=== PATIENT | female | born 1975 | race Caucasian/White ===

== ENCOUNTER → 2017-09-14 14:13 | Outpatient (CLI) | payer OTHER, SELFPAY ==
--- NOTE | 2017-09-14 14:16 | US_ITS ---
STUDY: THYROID ULTRASOUND REASON FOR EXAM: Female, 42 years old. Nodule. TECHNIQUE: Ultrasound evaluation of the thyroid was performed with real-time and static senior-scale imaging. COMPARISON: CT of the soft tissue neck, May 16, 2013. FINDINGS: RIGHT LOBE: The right lobe of the thyroid gland measures 3.9 x 1.3 x 1.3 cm. There is a homogeneous echotexture. There is a 3 x 3 x 2 mm hypoechoic nodule in the mid thyroid. There is minimal perinodular vascularity. LEFT LOBE: The left lobe of the thyroid gland measures 4 x 2.1 x 1.7 cm. There is a homogeneous echotexture. There is a 2.2 x 1.9 x 1.5 cm well-defined hypoechoic mass with minimal internal cystic changes in the mid left thyroid. There is perinodular vascularity. ISTHMUS: The isthmus measures 0.2 cm. The regional lymph nodes are normal. US/Thyroid IMPRESSION: 1. Small hypoechoic mass in the mid right thyroid. This is thought to correlate with the small nodule seen on the CT. This appears decreased in size. 2. Complex nodular density in the mid left thyroid not visualized on the prior CT. 3. TR 3, mildly suspicious. Follow-up US in one year recommended. Electronically Signed: Tony Alvarado DO at 17:46 EDT Tel [phone], Service support ,
== END ==
PROVIDERS: Family Provider Student in an Organized Health Care Education/Training Program; PCP Student in an Organized Health Care Education/Training Program; Visit Provider Surgery
DX: E07.9 Disorder of thyroid, unspecified (principal)
CPT/HCPCS: 76536

== ENCOUNTER → 2017-09-29 07:30 | Outpatient (CLI) | payer OTHER, SELFPAY ==
--- NOTE | 2017-09-29 07:30 | ASPS_PTH ---
PATIENT: KACY COLLADO LOC: [facility] U#:[id number] AGE/SX: 49/F ROOM: RE09/29/[address]: Dr. Irvni Rocha MD : 1975 BED: DIS: SPEC #: [id number] RECD: 10/01/17 07:48 STATUS: BERTO ERASMO #: [id number] BEATRIZ: 09/29/17 07:[address]: Irvin Rocha DEPT: CYTOLOGY RECD BY: Karime Rodgers ENTERED: 10/01/17 09:18 SP TYPE: ASPIRATION OTHR DR: Dr. Denis Smith DO Tissues: Thyroid gland, NOS Procedures: Pap Stain (control) Special Stain Group II Cytology Other HEADER OPERATION: Left thyroid FNA PRE-OP DIAGNOSIS: Left thyroid nodules TISSUE SUBMITTED: Left thyroid 6 slides DIAGNOSIS CYTOLOGY Left thyroid nodule, FNA (smears): Consistent with benign follicular nodule. See cytology study and comment. SJ:nelli 10/02/17 COMMENT The findings may represent adenomatoid nodule. Correlation with clinical, radiologic findings and appropriate follow up are necessary. Please make reference to previous specimen ([id number]) left thyroid, ultrasound-guided FNA with diagnosis of consistent with benign follicular nodule. CYTOLOGY STUDY Slides are reviewed. The specimen is adequate for evaluation. The specimen consists of benign follicular cells and minimal colloid. CYTOLOGY GROSS Received are six smears labeled with the patient's name and designated per the requisition as left thyroid. Submitted for staining. 10/01/17 TC:5 CPT: 00887
== END ==
PROVIDERS: Family Provider Student in an Organized Health Care Education/Training Program; PCP Student in an Organized Health Care Education/Training Program; Visit Provider Surgery
DX: E04.1 Nontoxic single thyroid nodule (principal)
CPT/HCPCS: 88161; 88313

== ENCOUNTER → 2018-11-01 16:30 | Outpatient (CLI) | payer OTHER, SELFPAY ==
--- NOTE | 2018-11-01 16:35 | US_ITS ---
STUDY: THYROID ULTRASOUND REASON FOR EXAM: Female, 43 years old. Left thyroid nodule follow-up TECHNIQUE: Ultrasound evaluation of the thyroid was performed with real-time and static senior-scale imaging. COMPARISON: None. FINDINGS: RIGHT LOBE: The right lobe of the thyroid gland measures 4.2 x 1.4 x 1.2 cm. There is a homogeneous echotexture. 3 mm nodule in the right thyroid lobe is of doubtful significance, likely representing a small colloidal nodule. LEFT LOBE: The left lobe of the thyroid gland measures 4.2 x 2.0 x 2.0 cm. There is a homogeneous echotexture. 2.2 x 1.8 x 1.5 cm hypoechoic nodule in the left thyroid lobe with small areas of cystic transformation stable since the prior study. ISTHMUS: The isthmus measures 2 mm. The regional lymph nodes are normal. US/Thyroid IMPRESSION: 1. Stable thyroid nodules. No new or enlarging thyroid nodule. Electronically Signed: Unruly Rosas MD (Brooks) at 17:21 EDT , Service support ,
== END ==
PROVIDERS: Family Provider Student in an Organized Health Care Education/Training Program; PCP Student in an Organized Health Care Education/Training Program; Referring Provider Student in an Organized Health Care Education/Training Program; Visit Provider Student in an Organized Health Care Education/Training Program
DX: E04.1 Nontoxic single thyroid nodule (principal)
CPT/HCPCS: 76536

== ENCOUNTER → 2021-01-05 09:24 | Outpatient (CLI) | payer OTHER, SELFPAY ==
[2021-01-05 12:47] LABS: Absolute Lymphocyte Count 1.88 X10^3/uL (0.83-4.51); Absolute Neutrophil Count 4.7 X10^3/uL (2.0-7.7); Basophil# 0.04 X10^3/uL; Basophil% 0.6 % (0-1); Eosinophil# 0.09 X10^3/uL; Eosinophils% 1.3 % (0-5); Hematocrit 42.9 % (37-47); Hemoglobin 14.2 g/dL (12.0-15.0); Lymphocyte # 1.88 X10^3/ul (0.83-4.51); Lymphocyte % 26.4 % (19-41); Mean Corp Hgb Conc 33.1 g/dL (32-36); Mean Corpuscular Hgb 30.2 pg (27.0-32.0); Mean Corpuscular Volume 91.3 fL (81-99); Mean Platelet Vol. 9.6 fl (6.2-12.0); Monocyte# 0.43 X10^3/uL; NRBC Flagged by Analyzer 0 % (0-5); Neutrophil # 4.65 X10^3/uL (2.7-7.7); Neutrophil % 65.4 % (47-70); Platelet Count 350 K/mm3 (150-450); RBC Distribution Width CV 13.5 % (11.6-14.6); White Blood Count 7.1 K/mm3 (4.4-11.0)
[2021-01-05 13:15] LABS: ALB/GLOB Ratio 0.9 RATIO (0.9-2.4); AST(SGOT) 30 U/L (15-37); Alanine Aminotransfer ALT/SGPT 22 U/L (13-56); Albumin, Serum 3.6 g/dL (3.2-5.0); Alkaline Phosphatase 48 U/L (45-117); Anion Gap 4 (5-15); BUN 9 mg/dL (7-18); BUN/Creat Ratio 10.8 RATIO (10-20); Calcium,Total 9.1 mg/dL (8.5-10.1); Chloride 106 mmol/L (98-107); Cholesterol 173 mg/dL (200); Creatinine, Serum 0.83 mg/dL (0.55-1.02); EST Glomerular Filtration Rate 79 mL/min (>60); Est Glom Filt Rate - Afr Amer 96 mL/min (>60); Free T3 2.9 pg/mL (2.18-3.98); Glucose 89 mg/dL (74-106); High Density Lipoprotein 49 mg/dL; Potassium 4.1 mmol/L (3.5-5.1); Protein, Total 7.6 g/dL (6.4-8.2); Sodium Level 136 mmol/L (136-145); T4 Free Direct 0.96 ng/dL (0.76-1.46); Thyroid Stim Hormone (TSH) 0.88 uIU/mL (0.358-3.74); Triglycerides 61 mg/dL; Very Low Density Lipoprotein 12 mg/dL (5-40)
[2021-01-06 13:43] LABS: Thyroid Peroxidase AB < 8 IU/mL (0-34)
== END ==
PROVIDERS: PCP Student in an Organized Health Care Education/Training Program; Referring Provider Internal Medicine Endocrinology, Diabetes & Metabolism; Visit Provider Internal Medicine Endocrinology, Diabetes & Metabolism
DX: E04.1 Nontoxic single thyroid nodule (principal); R53.81 Other malaise; R53.83 Other fatigue; Z82.49 Family history of ischemic heart disease and other diseases of the circulatory system
CPT/HCPCS: 36415; 80053; 80061; 84439; 84443; 84481; 85025; 86376

== ENCOUNTER → 2021-01-12 08:46 | Outpatient (CLI) | payer OTHER, SELFPAY ==
--- NOTE | 2021-01-12 08:48 | US_ITS ---
INDICATION: follow up size of left thyroid nodule EXAMINATION: Ultrasound US Thyroid (eg thyroid, parathyroid, parotid) TECHNIQUE: Rasmussen scale and color doppler imaging was performed of the thyroid gland. COMPARISON: Thyroid ultrasound from 11/01/2018 FINDINGS: RIGHT THYROID LOBE: 4.2 x 1.6 x 1.3 cm. Homogeneous echotexture with normal vascularity. [Stable 3 mm right mid pole nodule, likely benign and of no clinical significance. LEFT THYROID LOBE: 5.0 x 2.5 x 2.0 cm. Homogeneous echotexture with normal vascularity. [Thyroid nodule as follows: Location: Left midpole. Size: 3.0 x 2.4 x 1.7 cm, previously 2.2 x 1.8 x 1.5 cm in 2019. Composition: Cystic and solid (1 point) Echogenicity: Mixed echogenicity with some hypoechoic components (2 point) Shape: Wider than tall (0 point) Margin: Smooth (0 point) Echogenic foci: None (0 point) Doppler: There is some intranodular DOPPLER flow, not previously seen. TIRADS: 3 ISTHMUS: 2 mm. No thyroid nodules are present. US/Thyroid IMPRESSION: Interval increase in size in left thyroid nodule, measuring up to 3.0 cm, previously 2.2 cm in 2019. TIRADS: 3 RECOMMENDATION: Fine needle aspiration. Electronically Signed: Bin Patrick MD at 16:31 EST Tel , Service support ,
== END ==
PROVIDERS: PCP Student in an Organized Health Care Education/Training Program; Referring Provider Internal Medicine Endocrinology, Diabetes & Metabolism; Visit Provider Internal Medicine Endocrinology, Diabetes & Metabolism
DX: E04.1 Nontoxic single thyroid nodule (principal)
CPT/HCPCS: 76536

== ENCOUNTER 2021-06-02 05:50 | Day surgery (SDC) | payer OTHER, SELFPAY ==
[2021-06-02] VITALS (9 sets, daily range): BP systolic 123–132; BP diastolic 62–76; PULSE 57–84; RESP 16–18; TEMP 36.5–36.8; O2SAT 98–100; BMI 23.9
[2021-06-02 06:35] LABS: Internal QC Validated? YES +Cl - CLEAR BKGD
[2021-06-02 06:36] LABS: Pregnancy, Urine Negative Negative
--- NOTE | 2021-06-02 06:41 | PCM.HP.BLA ---
History and Physical Date of Admission: 06/02/21 Chief Complaint: discuss thyroid surgery Emergency Medicine Physician Assistant Required: No Is patient in pain?: No Allergies No Known Allergies Allergy (Verified 05/04/21 14:32) Medications levonorgestrel 20 mcg/24 hours (7 yrs) 52 mg intrauterine device 1 insert INTRAUTERINE ONCE 01/03/21 [History Confirmed 05/04/21] Is last menstrual period known: No Post menopausal: No Patient : No PFSH Medical History Acute frontal sinusitis, unspecified Chronic midline thoracic back pain Chronic neck pain Conjunctivitis of both eyes Family history of early CAD Family history of skin cancer History of bilateral breast reduction surgery Intertrigo Left thyroid nodule Macromastia Malaise and fatigue Seasonal allergies Shoulder pain Thyroid disease Surgical History (Updated 05/04/21 @ 14:29 by Mandy Portillo) History of bilateral breast reduction surgery No history of previous surgery S/P thyroid biopsy Family History Father Cancer prostate Diabetes Heart disease Mother Cancer skin cancer Other Family history of skin cancer Social History Smoking Status: Never smoker alcohol intake: current alcohol intake frequency: a few times a month details: Social substance use type: does not use HPI HPI HPI: KACY COLLADO, is a 45 F who presents to the office today for ongoing surgical follow-up regarding a dominant left thyroid nodule. My recent office notes are as below. The patient returns now subsequent to her vacation to proceed with a left thyroid lobectomy. He has just gotten back from her vacation. She is now interested in proceeding with the planned left thyroid lobectomy. She is aware that I anticipate at least 1 to 2 weeks off of work. She has had no new symptoms. Visit Reasons: THYROID NODULE Chief Complaint: Thyroid nodule Emergency Medicine Physician Assistant Required: No Is patient in pain?: No Allergies No Known Allergies Allergy (Verified 02/02/21 15:39) Medications levonorgestrel 20 mcg/24 hours (7 yrs) 52 mg intrauterine device 1 insert INTRAUTERINE ONCE 01/03/21 [History Confirmed 02/02/21] PFSH Medical History Acute frontal sinusitis, unspecified Conjunctivitis of both eyes Family history of early CAD Left thyroid nodule Malaise and fatigue Seasonal allergies Thyroid disease Surgical History History of bilateral breast reduction surgery Family History Father Cancer prostate Diabetes Heart disease Mother Cancer skin cancer Social History Smoking Status: Never smoker alcohol intake: current alcohol intake frequency: a few times a month details: Social substance use type: does not use HPI: KACY COLLADO, is a 45 F who presents to the office today for ongoing surgical consultation regarding a left thyroid nodule. The patient is referred by Dr. Shashi Dawkins and a written copy my surgical consult recommendations will be returned to her. Laboratory of January 05 shows a TSH of 0.88 and a free T4 0.96 and free T3 of zero 2.9. Thyroid peroxidase antibody was less than 8. It is of note that June 01, 2020 she tested positive for COVID-19 She also had an updated thyroid ultrasound January 12, 2021. This demonstrates that the right lobe measures 4.2 x 1.6 x 1.3 cm with a stable 3 mm right midpole nodule. The left lobe measures 5 x 2.5 x 2 cm. In the left midpole there is a 3 x 2.4 x 1.7 cm nodule whereas previously in 2019 it measured 2.2 x 1.8 x 1.5. Current grading is TI-RADS 3. I reviewed the images and clearly this left nodule is solid cystic in nature The patient has noted some slight increase in size of this left thyroid nodule. It appears more prominent in the mirror and to palpation. 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 COMPARISON: Thyroid ultrasound from 11/01/2018 FINDINGS: RIGHT THYROID LOBE: 4.2 x 1.6 x 1.3 cm. Homogeneous echotexture with normal vascularity. [Stable 3 mm right mid pole nodule, likely benign and of no clinical significance. LEFT THYROID LOBE: 5.0 x 2.5 x 2.0 cm. Homogeneous echotexture with normal vascularity. [Thyroid nodule as follows: Location: Left midpole. Size: 3.0 x 2.4 x 1.7 cm, previously 2.2 x 1.8 x 1.5 cm in 2019. Composition: Cystic and solid (1 point) Echogenicity: Mixed echogenicity with some hypoechoic components (2 point) Shape: Wider than tall (0 point) Margin: Smooth (0 point) Echogenic foci: None (0 point) Doppler: There is some intranodular DOPPLER flow, not previously seen. TIRADS: 3 ISTHMUS: 2 mm. No thyroid nodules are present. US/Thyroid IMPRESSION: Interval increase in size in left thyroid nodule, measuring up to 3.0 cm, previously 2.2 cm in 2019. TIRADS: 3 RECOMMENDATION: Fine needle aspiration. Electronically Signed: Bin Patrick MD at 16:31 EST Tel , Service support , My previous notes of 09/17/2017 reflect the following HPI: KACY COLLADO, is a 42 F who presents to the office today for surgical follow-up regarding a dominant left thyroid nodule. 42-year-old female. A0. Her most recent child is 7 months of age. On August 31, 2016 I performed an ultrasound-guided fine-needle aspiration left thyroid nodule for her. Cytology was felt to be consistent with benign follicular nodule. Significant atypia was not seen at that time. The patient has equal syndrome symptomatic prominence of her stylohyoid bone. She currently has some discomfort when she looks down. She otherwise denies neck pain or dysphasia. She herself can easily palpate this left thyroid nodule. Her most recent thyroid ultrasound exam performed at the [facility] on September 14, 2017 demonstrates a 3 x 3 x 2 mm right mid thyroid nodule. The left thyroid itself measures 4 x 2.1 x 1.7 cm and there is a 2.9 x 1.9 x 1.5 cm nodule within it. Previously a left thyroid nodule measured 2.2 x 1.6 x 1.8 cm. Difficult to assess whether it actually had changed. Interpretation was mildly suspicious. Possible thyroid ultrasound at 1 year. 09/29/2017 I performed a repeat ultrasound fine-needle aspiration of the left thyroid nodule. Pathology again was consistent with a benign follicular nodule. Findings might represent an adenomatoid nodule. ROS General General: No weight change, appetite, fatigue, colon cancer or breast cancer HEENT HEENT: No difficulty swallowing, eye injury, eye surgery, swollen glands or hoarseness Endo Endocrine: No thyroid disease, diabetes mellitus, thyroid cancer, Hair loss, heat intolerance or cold intolerance Additional Details: thyroid enlargement, benign biopsies Skin Skin: No rash or changing moles Musc Musculoskeletal: No back problems, arthritis, rheumatoid arthritis, gout or joint pain Cardio Cardiovascular: No murmur, pacemaker, heart disease, atrial fibrillation, high blood pressure, heart attack, heart stent, palpitations, shortness of breat with exertion or chest pain Psych Psychiatric: No depression, anxiety or hearing voices Resp Respiratory: No shortness of breath, No sleep apnea, No cough, No COPD, No asthma, No emphysema and No wheezing Gastro Gastrointestinal: No abdominal pain, No nausea or vomiting, No diarrhea, No constipation, No blood in stool, No acid reflux, No hemorrhoids, No ulcers, No gallbladder problem and No black,tarry stools Mello Hematologic: No blood thinners, No blood disorders, No bleeding, No anemia and No blood clots Exam Neck Other: Neck is supple, left thyroid nodule easily palpable and moves with swallowing, nontender, carotids are 3+, no cervical adenopathy Assessment and Plan Assessment and Plan (1) Left thyroid nodule: Status: Acute Plan - Dr. Irvin Rocha MD: Progressively enlarging left thyroid nodule. I suspect this is secondary to the cystic component. 2 previous fine-needle aspirations were benign. This nodule however is quite dominant. I have explained to the patient the surgical technique of a left thyroid lobectomy. Technique benefit risk complication alternatives have been discussed. We specifically mention parathyroids and recurrent laryngeal nerve. At this time the [facility] is in a Covid crisis. Elective surgery and overnight stays are prohibited. I did explain to the patient that much of the time I can achieve a left thyroid lobectomy completely as an outpatient procedure however I cannot absolutely guarantee that. She does have a vacation planned in March. My hope and thought would be that the Covid surgery would be declining after the New Year's spike in mid to late February. We could see the patient in the office early in March and then subsequent to her vacation plan for a left thyroid lobectomy. She has had an opportunity to ask and have questions answered and she is comfortable with that approach. At this point I do not believe that a third time repeat fine-needle aspiration would change my recommendations. Copy: Dr. Denis Smith and Dr. Shashi Rocha M.D., F.A.C.S. ROS General General: No weight change, appetite, fatigue, colon cancer or breast cancer HEENT HEENT: No difficulty swallowing, eye injury, eye surgery, swollen glands or hoarseness Endo Endocrine: No thyroid disease, diabetes mellitus, thyroid cancer, Hair loss, heat intolerance or cold intolerance Additional Details: thyroid enlargement, benign biopsies Skin Skin: No rash or changing moles Musc Musculoskeletal: No back problems, arthritis, rheumatoid arthritis, gout or joint pain Cardio Cardiovascular: No murmur, pacemaker, heart disease, atrial fibrillation, high blood pressure, heart attack, heart stent, palpitations, shortness of breat with exertion or chest pain Psych Psychiatric: No depression, anxiety or hearing voices Resp Respiratory: No shortness of breath, No sleep apnea, No cough, No COPD, No asthma, No emphysema and No wheezing Gastro Gastrointestinal: No abdominal pain, No nausea or vomiting, No diarrhea, No constipation, No blood in stool, No acid reflux, No hemorrhoids, No ulcers, No gallbladder problem and No black,tarry stools Mello Hematologic: No blood thinners, No blood disorders, No bleeding, No anemia and No blood clots Exam Const General: cooperative, healthy appearing, comfortable and no acute distress Nutritional Appearance: average body habitus Orientation: alert and awake [facility] Head: normal to inspection Neck Other: Visible and easily palpable left thyroid nodule. Nontender. No cervical adenopathy. Resp Effort & Inspection: normal respiratory effort Auscultation: clear to auscultation bilaterally Cardio Rate: regular rate Rhythm: regular rhythm GI Palpation: soft Neuro General: patient alert, patient awake and patient oriented x3 Extrem General: no calf tenderness Psych Appearance: grossly normal Assessment and Plan Assessment and Plan (1) Left thyroid nodule: Status: Acute Plan - Dr. Irvin Rocha MD: I recommend to the patient left thyroid lobectomy. She is aware of the technique, benefit, risk and alternatives. She is aware that if an obvious malignancy is found at the time of surgery then I will convert to a total thyroidectomy. She is aware of potential risks including but not limited to injury to the recurrent laryngeal nerve and parathyroids. She has had an opportunity to ask and have questions answered. We will schedule procedure at her discretion. Copy: Dr. Denis Rocha M.D., F.A.C.S I have re-examined the patient. There are no clinical changes since date of exam. Irvin Rocha M.D., F.A.C.S.
--- NOTE | 2021-06-02 06:43 | EX.PCM.DISCH ---
Discharge Instructions Procedure General Surgery Diet Discharge Diet: Light diet - advance as tolerated (if you have questions about your diet instructions, please talk to you doctor.) Activity Discharge Activity: May Not Drive (for 3-5 days or while taking narcotic pain medicine.) May shower in (days): 1 Lifting Restrictions: 10 pounds Dressing / Incision Call your doctor if your incision/area has: Continuous Slow Oozing, Sudden Increased Bleeding, Increased Pain/ Swelling, Increased Redness and Foul Smelling Discharge Call your doctor if you observe: Fever of 101 or Higher Suture Line Care: Avoid Pulling/Pushing and Avoid Pinching/Bending Follow Up Care Please Follow Up With: Irvin Rocha MD When: Call [phone] to make an appointment to be seen in about 10 days. Test Results: You may shower starting tomorrow. Remove the external tape dressing. Pat the incision dry. The surgical glue will gradually wear off over approximately a week or so. Resume your routine medications Discharge Plan Admission Attending Provider: Irvin Rocha Primary Care Provider: Denis Smith Discharge Orders/Prescriptions Prescriptions: No Action Mirena 20 mcg/24 hours (7 yrs) 52 mg intrauterine device 1 insert intrauterine ONCE RF: 0
[2021-06-02] MEDS: Lactated Ringers 1,000 ML 15 ML IV ×2 (06:45→08:35)
--- NOTE | 2021-06-02 08:00 | THYROID_PTH ---
PATIENT: KACY COLLADO LOC: [facility] [place] U#:[id number] AGE/SX: 45/F ROOM: RE06/02/[address]: Dr. Irvin Rocha MD : 1975 BED: DIS: 06/02/2021 SPEC #: [id number] RECD: 06/02/21 10:04 STATUS: BERTO ZIMMERMAN #: [id number] BEATRIZ: 06/02/21 08:[address]: Irvin Rocha DEPT: SURGICAL PATHOLOGY RECD BY: Janie Medina ENTERED: 06/02/21 12:40 SP TYPE: THYROID OTHR DR: Dr. Denis Smith, DO Tissues: Thyroid gland, NOS Procedures: Surgery Specimen Level V HEADER OPERATION: Thyroid lobectomy PRE-OP DIAGNOSIS: Left thyroid nodule TISSUE SUBMITTED: Left lobe of thyroid, suture rudd isthmus MICROSCOPIC DIAGNOSIS Left lobe of thyroid, lobectomy: Atypical follicular neoplasm. See comment. SJ:nelli 06/09/2021 COMMENT The specimen is sent to [facility] for expert opinion, reviewed by Dr. Khoury and the above diagnosis is rendered. Dr. Khoury also commented that ?tumor focally invades into, but not through capsule. No definite evidence of vascular invasion noted.? The complete report is viewable in the patient's EMR. The tumor measures 3.5 cm in greatest dimension. The tumor is completely excised and <1 mm from the closest anterior margin. Please make reference to previous specimens ([id number]) left thyroid nodule, ultrasound guided FNA and ([id number]) left thyroid nodule, FNA with diagnosis of ?consistent with benign follicular nodule.? Case has been reviewed in consultation with Dr. Mason who concurs with the above diagnosis. IDC:AM MICROSCOPIC DESCRIPTION Slides are reviewed. GROSS DESCRIPTION Received in fixative is one container labeled with the patient's name and designated left lobe of thyroid, suture rudd isthmus. The specimen consists of a thyroid lobectomy specimen weighing 9.6 gm. The left lobe of thyroid measures 3.5 x 2.5 x 2 cm. The isthmus measures 0.5 x 0.5 x 0.4 cm. The specimen is inked as follows: anterior margin ? blue, posterior margin ? black, isthmic resection margin ? yellow. Serial sections of the left lobe reveal a lechuga, solid nodule with focal area of hemorrhage and cystic changes occupying 90% of the thyroid lobe measuring 3.5 x 2 x 1.5 cm. Sections of the isthmus do not reveal any mass lesion. The entire specimen is submitted in ten cassettes as follows: 1 - isthmus, 2-10 - left thyroid lobe (2 containing most superior portion and 10 containing most inferior portion). / SRUTHI:nelli 06/03/2021 TC:1 CPT: 00165
[2021-06-02] MEDS: Bupivacaine 0.5% PF 10 ML VIAL (09:23)
--- NOTE | 2021-06-02 09:25 | PCM.OPRPT ---
Problems Associated Problem List Diagnoses (1) Left thyroid nodule: Report of Operation Date of Procedure: 06/02/21 Pre-Operative Diagnosis: Left thyroid nodule, Symptomatic Post-Operative Diagnosis: Same Surgery/Procedure Performed:: Left thyroid lobectomy Description of Surgical Findings:: Timeout and informed consent was obtained. 45-year-old female was taken to the operating place upon the table underwent general endotracheal intubation anesthesia. Clean procedure no antibiotics required. Neck was gently extended prep with chlorhexidine. Transverse suprasternal incision was created sharp dissection carried down through the subcutaneous tissue platysmal flaps were raised strap muscles were incised vertically the left lobe of thyroid identified and carefully the inferior pole was dissected free identifying the inferior parathyroid protecting it harmonic scalpel was used for hemostasis. I then approached the superior pole on the left tediously with blunt dissection identified the superior pole vessels and secured them down Monnig scalpel. Also identified the superior parathyroid and that also was preserved. The gland was then rotated anteriorly and identified the course of the recurrent laryngeal nerve and great care was taken in preserving it. Attachments were transected on the posterior aspect of the thyroid releasing it from the anterior surface of the trachea. The ligament of Tatum was identified and transected. The isthmus was quite small and it was taken over to the right lobe of the thyroid and then transected with the harmonic scalpel. Inspection revealed hemostasis intact. There is been minimal blood loss throughout the procedure. The neck was irrigated. A piece of fibrillar was placed in the left neck. The strap muscles were repaired with interrupted 3-0 Vicryl simple sutures. The platysma was approximated with the same. Skin edges approximated 5-0 Vicryl subdermal stitches. The periincisional areas anesthetized with 20 cc of 0.5% Marcaine. Surgical glue was applied followed by Telfa and tape. Sponge and instrument and needle counts were reported to the surgeon to be correct. The patient was taken to the recovery room in satisfactory addition without apparent complication Specimen left lobe of thyroid with isthmus. Drains none. Blood loss minimal. Irvin Rocha M.D., F.A.C.S. Surgeon: Irvin Rocha Type of Anesthesia: General and Local
[2021-06-02] MEDS: Acetaminophen 325 MG Tablet 650 MG PO (11:12)
== END 2021-06-02 23:59 | disposition home or self-care (01) ==
LOC: SDC 05:54 → AC 05:56
PROVIDERS: Anesthesiology; PCP Student in an Organized Health Care Education/Training Program; Referring Provider Surgery; Visit Provider Surgery
PROC: (CPT 60220; principal; 2021-06-02 07:45)
DX: D34 Benign neoplasm of thyroid gland (principal); E04.1 Nontoxic single thyroid nodule
CPT/HCPCS: 60220; 81025; 88307; J7120; J2405

== ENCOUNTER → 2021-06-28 | Outpatient (CLI) | payer OTHER, SELFPAY ==
[2021-06-28 13:11] LABS: T4 Free Direct 0.75 ng/dL (0.76-1.46); Thyroid Stim Hormone (TSH) 2.41 uIU/mL (0.358-3.74)
== END | disposition home or self-care (01) ==
LOC: BIMLAB 11:00
PROVIDERS: PCP Student in an Organized Health Care Education/Training Program; Referring Provider Internal Medicine Endocrinology, Diabetes & Metabolism; Visit Provider Internal Medicine Endocrinology, Diabetes & Metabolism
DX: D49.7 Neoplasm of unspecified behavior of endocrine glands and other parts of nervous system (principal)
CPT/HCPCS: 36415; 84439; 84443

== ENCOUNTER → 2021-07-29 | Outpatient (CLI) | payer OTHER, SELFPAY ==
[2021-07-29 15:54] LABS: T4 Free Direct 0.72 ng/dL (0.76-1.46); Thyroid Stim Hormone (TSH) 3.65 uIU/mL (0.358-3.74)
== END | disposition home or self-care (01) ==
LOC: MTLAB 11:38
PROVIDERS: PCP Student in an Organized Health Care Education/Training Program; Referring Provider Internal Medicine Endocrinology, Diabetes & Metabolism; Visit Provider Internal Medicine Endocrinology, Diabetes & Metabolism
DX: D49.7 Neoplasm of unspecified behavior of endocrine glands and other parts of nervous system (principal)
CPT/HCPCS: 36415; 84439; 84443

== ENCOUNTER → 2021-09-07 | Outpatient (CLI) | payer OTHER, SELFPAY ==
[2021-09-07 15:18] LABS: Vitamin D,25 Hydroxy 38.3 ng/mL
[2021-09-07 15:30] LABS: AST(SGOT) 18 U/L (15-37); Alanine Aminotransfer ALT/SGPT 24 U/L (13-56); Albumin, Serum 3.7 g/dL (3.2-5.0); Alkaline Phosphatase 68 U/L (45-117); Anion Gap 8 (5-15); BUN 15 mg/dL (7-18); BUN/Creat Ratio 19.6 RATIO (10-20); Calcium,Total 9.4 mg/dL (8.5-10.1); Chloride 103 mmol/L (98-107); Creatinine, Serum 0.76 mg/dL (0.55-1.02); EST Glomerular Filtration Rate 87 mL/min (>60); Est Glom Filt Rate - Afr Amer 105 mL/min (>60); Globulin 3.7 g/dL (2.2-4.2); Glucose 101 mg/dL (74-106); Potassium 3.4 mmol/L (3.5-5.1); Protein, Total 7.4 g/dL (6.4-8.2); Sodium Level 140 mmol/L (136-145)
== END | disposition home or self-care (01) ==
PROVIDERS: PCP Student in an Organized Health Care Education/Training Program; Referring Provider Physician Assistant; Visit Provider Physician Assistant
DX: E89.0 Postprocedural hypothyroidism (principal); E55.9 Vitamin D deficiency, unspecified
CPT/HCPCS: 36415; 80053; 82306; 84443

== ENCOUNTER → 2021-09-13 | Outpatient (CLI) | payer OTHER, SELFPAY ==
[2021-09-13 10:45] LABS: Anion Gap 5 (5-15); BUN 14 mg/dL (7-18); BUN/Creat Ratio 16.9 RATIO (10-20); Calcium,Total 8.8 mg/dL (8.5-10.1); Chloride 107 mmol/L (98-107); Creatinine, Serum 0.83 mg/dL (0.55-1.02); EST Glomerular Filtration Rate 79 mL/min (>60); Est Glom Filt Rate - Afr Amer 96 mL/min (>60); Glucose 100 mg/dL (74-106); Potassium 3.9 mmol/L (3.5-5.1); Sodium Level 138 mmol/L (136-145)
== END | disposition home or self-care (01) ==
LOC: MTLAB 08:58
PROVIDERS: PCP Student in an Organized Health Care Education/Training Program; Referring Provider Internal Medicine Endocrinology, Diabetes & Metabolism; Visit Provider Internal Medicine Endocrinology, Diabetes & Metabolism
DX: E89.0 Postprocedural hypothyroidism (principal); M85.89 Other specified disorders of bone density and structure, multiple sites
CPT/HCPCS: 36415; 80048

== ENCOUNTER → 2021-09-24 | Outpatient (CLI) | payer OTHER, SELFPAY ==
[2021-09-26 10:27] LABS: Bacteria 0 SEEN /hpf (None Seen); Mucous, Urine 0 SEEN /hpf (<or=2+)
[2021-09-26 10:37] LABS: Color, Urine Yellow (Yellow); Glucose, Dipstick Normal (Normal); Ketone-Dipstick Negative (Negative); Leukocyte Esterase-Dipstick 25 /ul (Negative); Nitrite-Dipstick Negative (Negative); Occult Blood-Urine 25 /ul (Negative); Protein-Dipstick Negative (Negative); Specific Gravity, Urine 1.015 (1.002-1.030); Urine Bilirubin Dipstick Negative (Negative); Urine Clarity Sl. Cloudy (Clear); Urine Urobilinogen Normal (Normal)
[2021-09-26 10:43] LABS: Red Blood Cells-Urine 0-5 SEEN /hpf (0-5); Squamous Epithelial Cells - UA 0-5 SEEN /hpf (5-10); White Blood Cells 0-5 SEEN /hpf (0-5)
== END | disposition home or self-care (01) ==
LOC: LABSPEC 09-26 10:14
PROVIDERS: PCP Student in an Organized Health Care Education/Training Program; Visit Provider Physician Assistant
DX: R30.9 Painful micturition, unspecified (principal)
CPT/HCPCS: 81001; 87086

== ENCOUNTER → 2021-12-05 | Outpatient (CLI) | payer OTHER, SELFPAY ==
[2021-12-05 10:08] LABS: Bacteria 0 SEEN /hpf (None Seen); Mucous, Urine 0 SEEN /hpf (<or=2+); White Blood Cells 0 SEEN /hpf (0-5)
[2021-12-05 10:39] LABS: Color, Urine Yellow (Yellow); Glucose, Dipstick Normal (Normal); Ketone-Dipstick Negative (Negative); Leukocyte Esterase-Dipstick Negative /ul (Negative); Nitrite-Dipstick Negative (Negative); Occult Blood-Urine 25 /ul (Negative); Protein-Dipstick Negative (Negative); Urine Bilirubin Dipstick Negative (Negative); Urine Clarity Clear (Clear); Urine Urobilinogen Normal (Normal)
[2021-12-05 10:55] LABS: Red Blood Cells-Urine 0-5 SEEN /hpf (0-5); Squamous Epithelial Cells - UA 0-5 SEEN /hpf (5-10)
== END | disposition home or self-care (01) ==
LOC: LABSPEC 09:58
PROVIDERS: PCP Student in an Organized Health Care Education/Training Program; Referring Provider Nurse Practitioner Family; Visit Provider Nurse Practitioner Family
DX: R30.9 Painful micturition, unspecified (principal)
CPT/HCPCS: 81001; 87086; 87088

== ENCOUNTER → 2021-12-06 | Outpatient (CLI) | payer OTHER, SELFPAY ==
[2021-12-06 13:02] LABS: ALB/GLOB Ratio 1.1 RATIO (0.9-2.4); AST(SGOT) 25 U/L (15-37); Alanine Aminotransfer ALT/SGPT 25 U/L (13-56); Albumin, Serum 3.9 g/dL (3.2-5.0); Alkaline Phosphatase 73 U/L (45-117); Anion Gap 7 (5-15); BUN 17 mg/dL (7-18); BUN/Creat Ratio 20.1 RATIO (10-20); Calcium,Total 9.1 mg/dL (8.5-10.1); Chloride 105 mmol/L (98-107); Creatinine, Serum 0.85 mg/dL (0.55-1.02); EST Glomerular Filtration Rate 77 mL/min (>60); Est Glom Filt Rate - Afr Amer 93 mL/min (>60); Globulin 3.7 g/dL (2.2-4.2); Glucose 95 mg/dL (74-106); Potassium 3.6 mmol/L (3.5-5.1); Protein, Total 7.6 g/dL (6.4-8.2); Sodium Level 138 mmol/L (136-145); Thyroid Stim Hormone (TSH) 0.68 uIU/mL (0.358-3.74)
== END | disposition home or self-care (01) ==
LOC: MTLAB 11:03
PROVIDERS: PCP Student in an Organized Health Care Education/Training Program; Referring Provider Internal Medicine Endocrinology, Diabetes & Metabolism; Visit Provider Internal Medicine Endocrinology, Diabetes & Metabolism
DX: E89.0 Postprocedural hypothyroidism (principal)
CPT/HCPCS: 36415; 80053; 84443

== ENCOUNTER → 2022-03-01 | Outpatient (CLI) | payer OTHER, SELFPAY ==
--- NOTE | 2022-03-01 09:10 | US_ITS ---
STUDY: ULTRASOUND BREAST - LEFT REASON FOR EXAM: Female, 46 years old. Abnormal screening mammogram. TECHNIQUE: Axial and longitudinal images of the LEFT breast were performed with a high resolution ultrasound transducer. # OF IMAGES: 48 COMPARISON: Comparison is made with prior mammogram dated 03/01/2022. FINDINGS: LEFT Breast: There is a 2.2 cm x 1.5 cm x 1 cm lobulated hypoechoic mass at the 7 o''clock position of the breast of 4 cm from nipple. This also evidence of a 9 mm x 6 mm x 4 mm hypoechoic irregular nodule at the 3 o''clock position of the breast at 9 size from nipple. A similar appearing hypoechoic irregular nodule measuring 8 mm x 9 mm x 4 mm is seen at the 4 o''clock position breast at 3 cm from the nipple. US/Breast Limited Unilateral IMPRESSION: Suspicious hypoechoic nodular densities at the 7 o''clock position of the breast as well as at the 3 and 4 o''clock position of the breast as described. Biopsy is recommended. ASSESSMENT CATEGORY: BIRADS Category 4: Suspicious - Biopsy Should Be Considered. A letter regarding these results will be sent to the patient by the facility within 30 days. Electronically Signed: Gio Coyle MD at 14:11 EST ,
--- NOTE | 2022-03-01 09:10 | BI_ITS ---
MAMMOGRAPHY - BILATERAL DIAGNOSTIC REASON FOR EXAM: Female, 46 years old. Left breast lumps. Prior bilateral breast reduction surgery. PERTINENT HISTORY: Non-contributory. TECHNIQUE: Digital bilateral breast mitchell (3D mammographic acquisition) in the CC and MLO projections. 2-D mediolateral oblique (MLO) and craniocaudad (CC) views of both breasts were obtained. CAD: Full Field Digital Mammography with Computer Added Detection was performed. COMPARISON: Comparison is made with prior outside examination dated 02/16/2021. FINDINGS: Breast Composition: The breasts are heterogeneously dense, which may obscure small masses. There is a 2 cm x 1 cm well-defined slightly lobular nodule in the inferior medial aspect of the left breast. Questionable tiny nodular density in the axillary region of the left breast. Stable small benign-appearing bilateral axillary lymph nodes. No other significant abnormalities are identified. BI/DIAG MAMM W/CAD, BILAT IMPRESSION: Stable examination. Correlation with ultrasound of the left breast in the inferior medial aspect as well as the axillary regions recommended. ASSESSMENT CATEGORY: BIRADS Category 0: Incomplete. Need additional imaging evaluation. A letter regarding these results will be sent to the patient by the facility within 30 days. Approximately 10% of breast cancers are not detected by mammography. A normal mammogram should not delay biopsy of a clinically suspicious abnormality. Electronically Signed: Gio Coyle MD at 11:37 EST ,
== END | disposition home or self-care (01) ==
PROVIDERS: PCP Student in an Organized Health Care Education/Training Program; Visit Provider Advanced Practice Midwife
DX: N63.20 Unspecified lump in the left breast, unspecified quadrant (principal)
CPT/HCPCS: 76642; 77062; 77066; G0279

== ENCOUNTER → 2022-03-06 | Outpatient (CLI) | payer OTHER, SELFPAY ==
--- NOTE | 2022-03-06 15:45 | BRBX_PTH ---
PATIENT: KACY COLLADO LOC: [facility] U#:[id number] AGE/SX: 46/F ROOM: RE03/06/[address]: Dr. Irvin Rocha MD : 1975 BED: DIS: 03/06/2022 SPEC #: [id number] RECD: 03/06/22 16:50 STATUS: BERTO ERASMO #: [id number] BEATRIZ: 03/06/22 15:[address]: Irvin Rocha DEPT: SURGICAL PATHOLOGY RECD BY: Janie Medina ENTERED: 03/07/22 09:59 SP TYPE: BREAST BX OTHR DR: Dr. Denis Smith DO Tissues: A - Left breast, NOS B - Left breast, NOS C - Left breast, NOS Procedures: Surgery Specimen Level IV HEADER OPERATION: Left breast biopsy x3 PRE-OP DIAGNOSIS: Multiple breast masses TISSUE SUBMITTED: A ? Left breast 1 o?clock, 4 cm from nipple, B - Left breast 4 o?clock, 3 cm from nipple, C - Left breast 3 o?clock, 9 cm from nipple MICROSCOPIC DIAGNOSIS A. Left breast at 1 o?clock, core biopsy: Fibroadenoma. Focal intraductal hyperplasia without atypia. B. Left breast at 4 o?clock, core biopsy: Fibroadenoma. C. Left breast at 3 o?clock, core biopsy: Fibroadenoma. AM:nelli 03/08/2022 MICROSCOPIC DESCRIPTION Slides are reviewed. GROSS DESCRIPTION A - Received in fixative is one container labeled with the patient's name and designated left breast 1 o?clock +4. The specimen consists of multiple elongated fragments of lechuga-yellow fibroadipose tissue that in aggregate measure 1.2 x 0.5 x 0.1 cm. The entire specimen is submitted in one cassette. B - Received in fixative is one container labeled with the patient's name and designated left breast 4 o?clock +3. The specimen consists of multiple elongated fragments of lechuga-yellow fibroadipose tissue that in aggregate measure 1 x 0.3 x 0.1 cm. The entire specimen is submitted in one cassette. C - Received in fixative is one container labeled with the patient's name and designated left breast 3 o?clock +9. The specimen consists of multiple elongated fragments of lechuga-yellow fibroadipose tissue that in aggregate measure 1.5 x 0.5 x 0.1 cm. The entire specimen is submitted in one cassette. / SJ:nelli 03/07/2022 TC:5 CPT: 01293 x3
== END | disposition home or self-care (01) ==
PROVIDERS: PCP Student in an Organized Health Care Education/Training Program; Visit Provider Surgery
DX: D24.2 Benign neoplasm of left breast (principal); N62 Hypertrophy of breast
CPT/HCPCS: 88305

== ENCOUNTER → 2022-03-08 | Outpatient (CLI) | payer OTHER, SELFPAY ==
--- NOTE | 2022-03-08 12:50 | BI_ITS ---
MAMMOGRAPHY - UNILATERAL DIAGNOSTIC: LEFT BREAST REASON FOR EXAM: Female, 46 years old. Clip placement. PERTINENT HISTORY: Ultrasound guided breast biopsy. TECHNIQUE: Digital unilateral breast mitchell (3D mammographic acquisition) in the CC and MLO projections. 2-D mediolateral oblique (MLO) and craniocaudad (CC) views of both breasts were obtained. CAD: Full Field Digital Mammography with Computer Added Detection was performed. COMPARISON: Comparison is made with prior mammogram dated 02/16/2021. FINDINGS: Breast Composition: The breasts are heterogeneously dense, which may obscure small masses. A tissue clip marker is seen in the nodule in the deep upper lateral aspect of the breast. A second tissue clip marker is seen in the slightly inferior lateral portion of the left breast. A third tissue markers within the nodule in the inferior medial portion of the breast. No other significant abnormalities are identified. BI/DIAG MAMM W/CAD, UNILAT IMPRESSION: Status post ultrasound-guided breast biopsies of the left breast. Placement of 3 tissue clip markers. ASSESSMENT CATEGORY: BIRADS Category 2: Benign. A letter regarding these results will be sent to the patient by the facility within 30 days. Approximately 10% of breast cancers are not detected by mammography. A normal mammogram should not delay biopsy of a clinically suspicious abnormality. Electronically Signed: Gio Coyle MD at 13:18 EST ,
== END | disposition home or self-care (01) ==
LOC: OPBI 12:49
PROVIDERS: PCP Student in an Organized Health Care Education/Training Program; Visit Provider Surgery
DX: Z98.890 Other specified postprocedural states (principal)
CPT/HCPCS: 77065

== ENCOUNTER → 2022-04-06 | Outpatient (CLI) | payer OTHER, SELFPAY ==
[2022-04-06 17:59] LABS: Mucous, Urine 0 SEEN /hpf (<or=2+)
[2022-04-06 18:08] LABS: Color, Urine Yellow (Yellow); Glucose, Dipstick Normal (Normal); Ketone-Dipstick 5 mg/dl (Negative); Leukocyte Esterase-Dipstick 25 /ul (Negative); Nitrite-Dipstick Negative (Negative); Occult Blood-Urine 50 /ul (Negative); Protein-Dipstick 15 mg/dl (Negative); Specific Gravity, Urine 1.025 (1.002-1.030); Urine Bilirubin Dipstick Negative (Negative); Urine Clarity Clear (Clear); Urine Urobilinogen 1 mg/dl (Normal)
[2022-04-06 18:18] LABS: Bacteria 1+ /hpf (None Seen); Calcium Oxalate Crystals Ur RARE /hpf (<or=2+); Red Blood Cells-Urine 0-5 SEEN /hpf (0-5); Squamous Epithelial Cells - UA 0-5 SEEN /hpf (5-10); White Blood Cells 0-5 SEEN /hpf (0-5)
== END | disposition home or self-care (01) ==
PROVIDERS: PCP Student in an Organized Health Care Education/Training Program; Visit Provider Physician Assistant
DX: N39.0 Urinary tract infection, site not specified (principal)
CPT/HCPCS: 81001; 87086

== ENCOUNTER → 2022-06-13 | Outpatient (CLI) | payer OTHER, SELFPAY ==
[2022-06-13 16:28] LABS: Vitamin D,25 Hydroxy 56.4 ng/mL
[2022-06-13 16:42] LABS: AST(SGOT) 25 U/L (15-37); Alanine Aminotransfer ALT/SGPT 32 U/L (13-56); Albumin, Serum 3.8 g/dL (3.2-5.0); Alkaline Phosphatase 71 U/L (45-117); Anion Gap 3 (5-15); BUN 14 mg/dL (7-18); BUN/Creat Ratio 17.4 RATIO (10-20); Calcium,Total 9.6 mg/dL (8.5-10.1); Chloride 104 mmol/L (98-107); Creatinine, Serum 0.81 mg/dL (0.55-1.02); EST Glomerular Filtration Rate 81 mL/min (>60); Est Glom Filt Rate - Afr Amer 99 mL/min (>60); Globulin 3.9 g/dL (2.2-4.2); Glucose 89 mg/dL (74-106); Magnesium 2.4 mg/dL (1.6-2.6); Potassium 3.5 mmol/L (3.5-5.1); Protein, Total 7.7 g/dL (6.4-8.2); Sodium Level 136 mmol/L (136-145)
== END | disposition home or self-care (01) ==
LOC: MTLAB 13:31
PROVIDERS: PCP Student in an Organized Health Care Education/Training Program; Referring Provider Internal Medicine Endocrinology, Diabetes & Metabolism; Visit Provider Internal Medicine Endocrinology, Diabetes & Metabolism
DX: E89.0 Postprocedural hypothyroidism (principal); E04.1 Nontoxic single thyroid nodule; E83.42 Hypomagnesemia; E55.9 Vitamin D deficiency, unspecified
CPT/HCPCS: 36415; 80053; 82306; 83735; 84443

== ENCOUNTER → 2023-01-01 | Outpatient (CLI) | payer SELFPAY ==
[2023-01-01 15:59] LABS: ALB/GLOB Ratio 1.1 RATIO (0.9-2.4); AST(SGOT) 17 U/L (15-37); Alanine Aminotransfer ALT/SGPT 21 U/L (13-56); Albumin, Serum 3.8 g/dL (3.2-5.0); Alkaline Phosphatase 66 U/L (45-117); Anion Gap 5 (5-15); BUN 11 mg/dL (7-18); BUN/Creat Ratio 13.1 RATIO (10-20); Calcium,Total 9.1 mg/dL (8.5-10.1); Chloride 105 mmol/L (98-107); Creatinine, Serum 0.84 mg/dL (0.55-1.02); EST Glomerular Filtration Rate 78 mL/min (>60); Est Glom Filt Rate - Afr Amer 94 mL/min (>60); Globulin 3.5 g/dL (2.2-4.2); Glucose 90 mg/dL (74-106); Magnesium 2.1 mg/dL (1.6-2.6); Potassium 3.9 mmol/L (3.5-5.1); Protein, Total 7.3 g/dL (6.4-8.2); Sodium Level 137 mmol/L (136-145); Thyroid Stim Hormone (TSH) 1.23 uIU/mL (0.358-3.74)
== END | disposition home or self-care (01) ==
LOC: LAB.FUTURE 12:33 → MTLAB 12:35
PROVIDERS: PCP Student in an Organized Health Care Education/Training Program; Referring Provider Internal Medicine Endocrinology, Diabetes & Metabolism; Visit Provider Internal Medicine Endocrinology, Diabetes & Metabolism
DX: E89.0 Postprocedural hypothyroidism (principal); E83.42 Hypomagnesemia
CPT/HCPCS: 36415; 80053; 83735; 84443

== ENCOUNTER → 2023-02-22 | Outpatient (CLI) | payer BC, SELFPAY ==
--- OUTSIDE RECORDS SUMMARY | 2023-02-22 10:12 | XMS RPT_ITS | CCD ---
Author Name Unknown Address [address] [place] [address] Organization [facility] Care Team Providers Care Progress Developer Name Role Phone Denis Rico DO Primary Care Provider LEXIE TONG Referring Unavailable DENIS RICO Primary Care Unavailable LEXIE TONG Referring Unavailable DENIS RICO Primary Care Unavailable DENIS RICO Primary Care Unavailable LEXIE TONG Attending Unavailable Allergies Allergy Classification Reported Allergen(s) Allergy Type Date of Onset Reaction(s) Facility (6 sources) NITROFURANTOIN, MACROCRYSTALS / Nitrofurantoin, Monohydrate; Translations: [NITROFURANTOIN MONOHYD/M-CRYST] Drug Allergy 01-04-2022 Rash [facility] Medications Current Medications Medication Drug Class(es) Dates Sig (Normalized) Sig (Original) levonorgestrel 0.270847 mg/hr intrauterine system (6 sources) Progestin, Progestin-containi ng Intrauterine Device Start: 03-24-2020 End: 03-23-2026 levonorgestrel (MIRENA) 20 mcg/24 hours (6 yrs) 52 mg IUD 1 Each by INTRAUTERINE route as directed. 1 Each 0 03/24/2020 03/23/2026 Active Completed/Discontinued Medications Medication Drug Class(es) Dates Sig (Normalized) Sig (Original) Ethinyl Estradiol / Norethindrone (6 sources) Estrogen Start: 12-09-2020 take 1 tablet by mouth once daily, then take 0.05 tablet by mouth once Norethindrone Acet-Ethinyl Est (LOESTRIN ,) 1-20 mg-mcg per tablet Indications: Breakthrough bleeding with IUD Take 1 tablet by mouth once daily. 28 tablet 1 12/09/2020 Active Problems Active Problems Problem Classification Problem Date Documented Date Episodic/Chronic Esophageal disorders (12 sources) Gastroesophageal reflux disease without esophagitis; Translations: [Gastro-esophageal reflux disease without esophagitis] Onset: 08-01-2016 08-01-2016 Chronic Nonmalignant breast conditions (2 sources) Lump in lower inner quadrant of left breast; Translations: [Unspecified lump in the left breast, lower inner quadrant] Onset: 02-20-2023 01-29-2023 Episodic Other female genital disorders (1 source) Vaginal irritation; Translations: [Other specified noninflammatory disorders of vagina] Episodic Other screening for suspected conditions (not mental disorders or infectious disease) (2 sources) Patient encounter status; Translations: [Encounter for screening mammogram for malignant neoplasm of breast] Onset: 02-20-2023 Episodic Thyroid disorders (12 sources) Thyroid nodule; Translations: [Nontoxic single thyroid nodule] Onset: 08-01-2016 08-01-2016 Chronic Past or Other Problems Problem Classification Problem Date Documented Da te Episodic/Chronic Diabetes or abnormal glucose tolerance complicating ; childbirth; or the puerperium (6 sources) History of gestational diabetes mellitus; Translations: [Personal history of gestational diabetes] Onset: 03-20-2017 03-20-2017 Episodic Spondylosis; intervertebral disc disorders; other back problems (12 sources) Neck pain; Translations: [Cervicalgia] Onset: 09-21-2015 09-21-2015 Episodic Results Test Name Value Interpretation Reference Range Facil ity Vital Signs Date Time Vital Sign Value Performing Clinician Connor plata 01-29-2023 14:19-0500 Body weight 65.32 kg Lexie Tong APRN.CNP Work Phone: [facility] 01-29-2023 14:19-0500 Diastolic blood pressure 60 mm[Hg] Lexie Tong APRN.CNP Work Phone: [facility] 01-29-2023 14:19-0500 Heart rate 68 /min Lexie Tong APRN.CNP Work Phone: [facility] 01-29-2023 14:19-0500 Respiratory rate 14 /min Lexie Tong APRN.CNP Work Phone: [facility] 01-29-2023 14:19-0500 Systolic blood pressure 104 mm[Hg] Lexie Tong HUMAN RESOURCES RECORDS CLERK.CREDIT ASSISTANT Work Phone: [facility] 01-04-2022 16:05-0500 Body weight 70.03 kg Yola Eliedimitris HUMAN RESOURCES RECORDS CLERK.CNM Work Phone: [facility] 01-04-2022 16:05-0500 Diastolic blood pressure 72 mm[Hg] Yola Plotts HUMAN RESOURCES RECORDS CLERK.CNM Work Phone: [facility] 01-04-2022 16:05-0500 Systolic blood pressure 112 mm[Hg] Yola Delgadillots HUMAN RESOURCES RECORDS CLERK.CNM Work Phone: [facility] Encounters Encounter Date Encounter Type Care Provider Facility Start: 02-20-2023 End: 02-20-2023 ambulatory LEXIE TONG Facility:[facility] Start: 01-29-2023 End: 01-29-2023 ambulatory DENIS RICO Facility:[facility] Start: 01-29-2023 End: 01-29-2023 Patient encounter procedure Lexie Tong HUMAN RESOURCES RECORDS CLERK.CREDIT ASSISTANT Work Phone: [facility] Procedures Date Procedure Procedure Detail Performing Clinician Start: 03-01-2022 Mammography Ruth baugh HUMAN RESOURCES RECORDS CLERK.CNM Work Phone: Start: 04-09-2020 Mammography Denis Louis rislorrie DO Work Phone: Start: 03-02-2020 Adult depression scr eening assessment Denis Louisrison DO Work Phone: Start: 05-01-2014 Lipid 1996 panel - S tika or Plasma Lexie Tong HUMAN RESOURCES RECORDS CLERK.CREDIT ASSISTANT Work Phone: Plan of Treatment Date Care Activity Detail Author Start: 01-22-2027 Urine microalbumin profile [facility] Start: 01-30-2024 Covid-19 Vaccine (#1) Covid-19 Vacci ne (#1) [facility] Immunizations Immunization Date Immunization Notes Care Provider Fa tammy 01-06-2022 influenza virus vaccine, unspecified formulation Lexie Tong HUMAN RESOURCES RECORDS CLERK.CREDIT ASSISTANT Work Phone: [facility] 01-16-2018 hepatitis B vaccine, adult dosage Denis Rico DO Work Phone: [facility] Work Phone: 08-17-2017 hepatitis B vaccine, adult dosage Denis Rico DO Work Phone: [facility] Work Phone: 06-20-2017 hepatitis B vaccine, adult dosage Denis Rico DO Work Phone: [facility] Work Phone: 01-22-2017 influenza, injectabl e, quadrivalent, contains preservative Denis Rico DO Work Phone: [facility] 01-22-2017 tetanus toxoid, redu ricardo diphtheria toxoid, and acellular pertussis vaccine, adsorbed Denis Rico DO Work Phone: [facility] 11-16-2016 RHO(D) immune globul in- IV or IM Denis Rico DO Work Phone: [facility] Work Phone: 05-15-2012 tetanus toxoid, redu ricardo diphtheria toxoid, and acellular pertussis vaccine, adsorbed Denis Rico DO Work Phone: [facility] 04-03-2012 RHO(D) immune globul in- IV or IM Denis Rico DO Work Phone: [facility] 12-13-2011 influenza virus vaccine, unspecified formulation Denis Rico DO Work Phone: [facility] Work Phone: 11-15-2011 RHO(D) immune globul in- IV or IM Denis Rico DO Work Phone: [facility] Payers Date Payer Category Payer Private Health Insurance [employer] PPO [id number] 2020-Present [phone] [id number] [place] [id number] O [id number] 2020 Private Health Insurance [id number] 2020 Private Health Insurance [id number] Social History Date Type Detail Facility Start: 04-24-2014 End: 01-04-2022 Tobacco smoking status NHIS Ex-smoker [facility] Work Phone: End: 02-19-2014 History of tobacco use Current smoker [facility] Work Phone: End: 02-19-2014 History of tobacco use Cigarette Smoker [facility] Work Phone: Start: 04-24-2014 End: 01-04-2022 Tobacco use and exposure Smokeless tobacco non-user [facility] Work Phone: Start: 10-13-2020 End: 01-29-2023 Alcohol intake Current drinker of alcohol (finding) [facility] Start: 1975 Sex Assigned At Not on file [facility] Start: 12-25-2021 End: 01-04-2022 Exposure to SARS-CoV-2 (event) Not sure [facility] Work Phone: Start: 03-02-2020 End: 01-29-2023 History of Social function [facility] Work Phone: Start: 03-02-2020 End: 01-29-2023 Tobacco use panel [facility] Work Phone: Adult Depression Screening Assessment 0 [facility] Work Phone: Clinical Notes 11-29-2016 to 02-20-2023 Lexie Tong APRN.CREDIT ASSISTANT - 01/29/2023 2:37 PM ESTTelephone Encounter - Beatris Butler RN - 03/07/2022 8:17 AM ESTTelephone Encounter - Ruth Gonzalez APRN.CNM - 03/06/2022 5:59 PM EST Note Date & Type Note Facility 02-20-2023 Note HNO ID: [id number] Author: Albina Rodrigez RDMS Service: ? Author Type: Aircraft Pilot Type: Progress Notes Filed: 02/20/2023 2:38 PM Note Text: Radiology Service Progress Note PATIENT NAME: Kacy Moran DATE OF SERVICE: February 20, 2023 TIME: 2:37 PM PATIENT IDENTITY VERIFICATION COMPLETED USING TWO (2) IDENTIFIERS: Name and Date of confirmed by patient verbally. FALL SCREENING: Has the patient had 2 falls in the last year or 1 fall with injury or currently using an Ambulatory Assistive Device (Walker, Cane, Wheelchair, Crutches, etc.)? No PATIENT GENDER DATA: Female. status: : No status: NO. PATIENT RELEVANT IMPLANT DATA REVIEWED: Not Applicable RADIOLOGY DEPARTMENT: Ultrasound PERIPHERAL IV DATA: Not applicable SIGNED BY: Albina Rodrigez RDMS February 20, 2023 2:37 PM [facility] 02-20-2023 Note HNO ID: [id number] Author: Junie Acevedo Mammo Tech Service: ? Author Type: Aircraft Pilot Type: Progress Notes Filed: 02/20/2023 9:46 AM Note Text: Radiology Service Progress Note PATIENT NAME: Kacy Moran DATE OF SERVICE: February 20, 2023 TIME: 9:21 AM PATIENT IDENTITY VERIFICATION COMPLETED USING TWO (2) IDENTIFIERS: Name and Date of confirmed by patient verbally. FALL SCREENING: Has the patient had 2 falls in the last year or 1 fall with injury or currently using an Ambulatory Assistive Device (Walker, Cane, Wheelchair, Crutches, etc.)? No PATIENT GENDER DATA: Female. status: : No status: NO. PATIENT RELEVANT IMPLANT DATA REVIEWED: Not Applicable RADIOLOGY DEPARTMENT: Mammography PERIPHERAL IV DATA: Not applicable SIGNED BY: Reny Smith February 20, 2023 9:21 AM [facility] 01-29-2023 Note HNO ID: [id number] Author: Lexie Tong APRN.DAGO Service: ? Author Type: Nurse Practitioner Type: Progress Notes Filed: 01/29/2023 2:45 PM Note Text: Chief Complaint Patient presents with: lump in left breast: Noticed a few weeks ago or a month at most HPI Kacy Moran is a 47 year old female who presents here today for Above Complaints. Kacy is an established patient of Dr. Rico, DO. She is a new patient to me today. Concerns today.. Lump in L breast --- Noticed a few weeks ago. Hx of breast reduction in her early 20s-- around 2001 -- so she has a lot of scar tissue in breasts. Mammogram in February was abnormal, 3 biopsies were taken by Dr. Rocha. All benign results. 3 tissue clip markers were placed in L breast. Pt not sure if this lump is new or one of the prior scar tissues regions. Hx of dense breasts and always needing elham. Unable to get in with OBGYN for a few weeks. Has Mirena IUD so does not get menstrual cycle. No other symptoms of menopause currently. No other concerns or complaints. Past medical history, appointments, medications, allergies reviewed. 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 History of gestational diabetes Left thyroid nodule 08/01/2016 PIH ( induced hypertension) Tobacco abuse Previous Surgical History PAST SURGICAL HISTORY Procedure Laterality Date ESOPHAGOGASTRODUODENOSCOPY TRANSORAL DIAGNOSTIC 04/07/15 EGD FNA WITH IMAGING Left 08/30/2016 U/S FNA left thyroid REDUCTION OF LARGE BREAST 2001 TOOTH EXTRACTION 97 wisdom Family History FAMILY HISTORY Problem Relation Age of Onset Cancer Mother SKIN CANCER- non melanoma Prostate Cancer Father Diabetes Father Heart Father 62 CAD Hypertension Father Diabetes Brother Stroke Maternal Grandmother Heart Maternal Grandfather Diabetes Paternal Grandmother Heart Paternal Grandfather No Known Problems Son No Known Problems Son No Known Problems Son Patient Allergies ALLERGIES Allergen Reactions Macrobid [Nitrofura* Rash Current Medications Current Outpatient Medications on File Prior to Visit Medication Sig levonorgestrel (MIRENA) 20 mcg/24 hours (6 yrs) 52 mg IUD 1 Each by INTRAUTERINE route as directed. levothyroxine 88 mcg cap Take 88 mcg by mouth daily before breakfast. Just changed to 1 1/2 pill Sunday one every day peg 3350-Electrolytes (GOLYTELY) 236-22.74-6.74 -5.86 gram suspension Refer to printed prep instructions from your provider. Norethindrone Acet-Ethinyl Est (LOESTRIN 03/10, ,) 1-20 mg-mcg per tablet Take 1 tablet by mouth once daily. (Patient not taking: Reported on 01/29/2023) No current facility-administered medications on file prior to visit. Social History Social History Tobacco Use Smoking status: Former Years: 7 Types: Cigarettes Quit date: 02/19/2014 Years since quittin.9 Smokeless tobacco: Never Vaping Use Vaping Use: Never used Substance Use Topics Alcohol use: Yes Drug use: No REVIEW OF SYSTEMS: as above Reviewed relevant PMHx, PSHx, Social Hx, current medications and allergies. Review of Symptoms REVIEW OF SYSTEMS See HPI. EXAM: BP 104/60 (BP Site: Left Arm, BP Position: Sitting, BP Cuff Size: Regular Adult) Pulse 68 Resp 14 Wt 65.3 kg (144 lb) LMP 03/18/2020 BMI 24.72 kg/m? General Appearance: Well appearing, alert, in no acute distress, well-hydrated, well nourished.. Breast: Inspection negative. No nipple discharge or bleeding. No palpable mass, No skin changes or dimpling, and Negative findings: normal in size and symmetry, normal contour with no evidence of flattening or dimpling, skin normal, nipples everted without rashes or discharge. Positive -- nodular breasts bilaterally, palpable lump noted at area of concern. Non-tender and movable. Lymph Nodes: No axillary lymphadenopathy. Health Maintenance List Hepatitis C Screening Never done Lipid Screening due on 2021 Colorectal Cancer Screening Never done Diabetes Screening due on 12/18/2021 Depression Assessment Never done Pap Testing due on 03/20/2022 HPV Testing due on 03/20/2022 Mammogram Screening due on 03/01/2023 Influenza Vaccine(1) due on 08/19/2023 Covid-19 Vaccine(1) due on 01/30/2024 DTaP,Tdap,Td Vaccine(3 - Td or Tdap) due on 01/22/2027 Hepatitis B Vaccine Completed HIV Screening Completed HPV Vaccine Aged Out ASSESSMENT/PLAN: 1. Mass of lower inner quadrant of left breast - ICD9: 611.72, ICD10: N63.24 US and diagnostic mammogram of L breast to investigate nodule of concern. Possible scar tissues as noted in February due to breast reduction hx. Ordered screening mammogram as this is due in 1 month as well. - RAAD DIAGNOSTIC LEFT - US BREAST LTD LEFT - RAAD SCREENING W ELHAM RTO as needed. Prescription instructions reviewed with patient as applic (more content not included)... [facility] 01-29-2023 History of Presen t illness Narrative Chief Complaint Patient presents with: lump in left breast: Noticed a few weeks ago or a month at most HPI Kacy Moran is a 47 year old female who presents here today for Above Complaints. Kacy is an established patient of Dr. Luis DO. She is a new patient to me today. Concerns today.. Lump in L breast --- Noticed a few weeks ago. Hx of breast reduction in her early 20s-- around 2001 -- so she has a lot of scar tissue in breasts. Mammogram in February was abnormal, 3 biopsies were taken by Dr. Rocha. All benign results. 3 tissue clip markers were placed in L breast. Pt not sure if this lump is new or one of the prior scar tissues regions. Hx of dense breasts and always needing elham. Unable to get in with OBGYN for a few weeks. Has Mirena IUD so does not get menstrual cycle. No other symptoms of menopause currently. No other concerns or complaints. Past medical history, appointments, medications, allergies reviewed. 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 History of gestational diabetes Left thyroid nodule 08/01/2016 PIH ( induced hypertension) Tobacco abuse Previous Surgical History PAST SURGICAL HISTORY Procedure Laterality Date ESOPHAGOGASTRODUODENOSCOPY TRANSORAL DIAGNOSTIC 04/07/15 EGD FNA WITH IMAGING Left 08/30/2016 U/S FNA left thyroid REDUCTION OF LARGE BREAST 2001 TOOTH EXTRACTION 97 wisdom Family History FAMILY HISTORY Problem Relation Age of Onset Cancer Mother SKIN CANCER- non melanoma Prostate Cancer Father Diabetes Father Heart Father 62 CAD Hypertension Father Diabetes Brother Stroke Maternal Grandmother Heart Maternal Grandfather Diabetes Paternal Grandmother Heart Paternal Grandfather No Known Problems Son No Known Problems Son No Known Problems Son Patient Allergies ALLERGIES Allergen Reactions Macrobid [Nitrofura* Rash Current Medications Current Outpatient Medications on File Prior to Visit Medication Sig levonorgestrel (MIRENA) 20 mcg/24 hours (6 yrs) 52 mg IUD 1 Each by INTRAUTERINE route as directed. levothyroxine 88 mcg cap Take 88 mcg by mouth daily before breakfast. Just changed to 1 1/2 pill Sunday one every day peg 3350-Electrolytes (GOLYTELY) 236-22.74-6.74 -5.86 gram suspension Refer to printed prep instructions from your provider. Norethindrone Acet-Ethinyl Est (LOESTRIN 03/10, ,) 1-20 mg-mcg per tablet Take 1 tablet by mouth once daily. (Patient not taking: Reported on 01/29/2023) No current facility-administered medications on file prior to visit. Social History Social History Tobacco Use Smoking status: Former Years: 7 Types: Cigarettes Quit date: 02/19/2014 Years since quittin.9 Smokeless tobacco: Never Vaping Use Vaping Use: Never used Substance Use Topics Alcohol use: Yes Drug use: No REVIEW OF SYSTEMS: as above Reviewed relevant PMHx, PSHx, Social Hx, current medications and allergies. Review of Symptoms REVIEW OF SYSTEMS See HPI. EXAM: BP 104/60 (BP Site: Left Arm, BP Position: Sitting, BP Cuff Size: Regular Adult) Pulse 68 Resp 14 Wt 65.3 kg (144 lb) LMP 03/18/2020 BMI 24.72 kg/m General Appearance: Well appearing, alert, in no acute distress, well-hydrated, well nourished.. Breast: Inspection negative. No nipple discharge or bleeding. No palpable mass, No skin changes or dimpling, and Negative findings: normal in size and symmetry, normal contour with no evidence of flattening or dimpling, skin normal, nipples everted without rashes or discharge. Positive -- nodular breasts bilaterally, palpable lump noted at area of concern. Non-tender and movable. Lymph Nodes: No axillary lymphadenopathy. Health Maintenance List Hepatitis C Screening Never done Lipid Screening due on 2021 Colorectal Cancer Screening Never done Diabetes Screening due on 12/18/2021 Depression Assessment Never done Pap Testing due on 03/20/2022 HPV Testing due on 03/20/2022 Mammogram Screening due on 03/01/2023 Influenza Vaccine(1) due on 08/19/2023 Covid-19 Vaccine(1) due on 01/30/2024 DTaP,Tdap,Td Vaccine(3 - Td or Tdap) due on 01/22/2027 Hepatitis B Vaccine Completed HIV Screening Completed HPV Vaccine Aged Out ASSESSMENT/PLAN: 1. Mass of lower inner quadrant of left breast - ICD9: 611.72, ICD10: N63.24 US and diagnostic mammogram of L breast to investigate nodule of concern. Possible scar tissues as noted in February due to breast reduction hx. Ordered screening mammogram as this is due in 1 month as well. - RAAD DIAGNOSTIC LEFT - US BREAST LTD LEFT - RAAD SCREENING W ELHAM RTO as needed. Prescription instructions reviewed with patient as applicable. Potential red flag symptoms discussed with the patient. Reviewed appropriate action plan to take if red flag symptoms occur. Patient agreeable to treatment plan. Lexie Adam APRN.CNP [address] [place] [address] documented in this encounter [facility] 03-07-2022 Miscellaneous Notes Formattin g of this note might be different from the original. At the time results were received. Had [facility] review. [facility] and patient was already scheduled for a biopsy with [facility]Surg at [facility]. Beatris Butler RN Please call patient and referral to general surgeon for abnormal diabnostic mammogram. Biopsy is recommended. Ruth Gonzalez APRN.CNM documented in this encounter [facility] 03-01-2022 Miscellaneous Notes Formattin g of this note might be different from the original. Spoke with [facility]. Verbal order for diagnostic bilateral imaging given to Cha. Beatris Butler RN Yes verbal order is fine.Thank you, Ruth Gonzalez APRN.CNM [facility] called. Patient is at their building and they are needing a diagnostic mammogram order. States they have a bilateral screening order, a left diagnostic, and left breast US order. The written order has both bilateral screening and left diagnostic. They have orders from both [facility] and [facility]. Patient has a left breast lump per [facility]. Can a bilateral diagnostic be ordered? This can be verbal order. We can call [phone]. Beatris Butler RN documented in this encounter [facility] 01-06-2022 Miscellaneous Notes Formattin g of this note might be different from the original. Orders faxed to [facility]. Anna Morgan RN Yes, would like diagnostic mammogram and ultrasound. Screening for next year. Yola Hidalgo APRN.CNM [facility] called. They received patient's orders for breast imaging. The orders have screening mammogram, left diagnostic, and left ultrasound. Codes are for both screening and diagnostic. [facility] can not accept orders with both codes. Do you want patient to have a diagnostic bilateral mammogram and ultrasound now? Then she won't need a screening for a year? Will need to fax new orders. Beatris Butler RN documented in this encounter [facility] 01-04-2022 History of Presen t illness Narrative Kacy Moran is a 46 year old female who presents for problem visit of vaginal irritation for the past month. Patient initially thought she had a yeast infection and took Diflucan PO without relief. She denies any vaginal discharge, odor or pain. Just feels irritated on inside . Did realize this morning that she has been using a new body wash. Sexually active with no new partners but accepts STD screening today. OB History T3 L3 SAB0 IAB0 Ectopic0 Multiple0 Live Births3 Track Hoe Operator History LMP: 03/18/2020, IUD Age at Menarche: Age at First : Age at Menopause: Track Hoe Operator History Comments: Sexual Activity: Not Currently; Male Contraception: I.U.D. 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 History of gestational diabetes Left thyroid nodule 08/01/2016 PIH ( induced hypertension) Tobacco abuse PAST SURGICAL HISTORY Procedure Laterality Date EGD W/O OR W/BRUSH/WASH 04/07/15 EGD FNA WITH IMAGING Left 08/30/2016 U/S FNA left thyroid REDUCTION OF LARGE BREAST 2001 TOOTH EXTRACTION 97 wisdom FAMILY HISTORY Problem Relation Age of Onset Cancer Mother SKIN CANCER- non melanoma Prostate Cancer Father Diabetes Father Heart Father 62 CAD Hypertension Father Diabetes Brother Stroke Maternal Grandmother Heart Maternal Grandfather Diabetes Paternal Grandmother Heart Paternal Grandfather No Known Problems Son No Known Problems Son No Known Problems Son Social History Tobacco Use Smoking status: Former Years: 7.00 Types: Cigarettes Quit date: 02/19/2014 Years since quittin.8 Smokeless tobacco: Never Vaping Use Vaping Use: Never used Substance Use Topics Alcohol use: Yes Drug use: No Current Outpatient Medications Medication Sig peg 3350-Electrolytes (GOLYTELY) 236-22.74-6.74 -5.86 gram suspension Refer to printed prep instructions from your provider. Norethindrone Acet-Ethinyl Est (LOESTRIN 03/10, ,) 1-20 mg-mcg per tablet Take 1 tablet by mouth once daily. levonorgestrel (MIRENA) 20 mcg/24 hours (6 yrs) 52 mg IUD 1 Each by INTRAUTERINE route as directed. No current facility-administered medications for this visit. Allergies As of Date: 01/04/2022 (No Known Allergies) Fully Assessed 01/04/2022 REVIEW OF SYSTEMS Abdomen: No bloating, early satiety, indigestion, or increased flatulence. No abdominal pain, nausea, vomiting, diarrhea, or constipation. Bladder: No dysuria, gross hematuria, urinary frequency, urinary urgency, or incontinence. Breast: No breast lumps, nipple d/c, overlying skin changes, redness or skin retraction. Expanded ROS: N/A Allergies and current medication updated:Yes EXAM: LMP 03/18/2020 GENERAL: pleasant, female in no apparent distress HEENT: Normocephalic and atraumatic NECK: Supple and full range of motion DERMATOLOGY: Normal and without lesions BREAST: deferred CHEST: Normal inspiratory effort ABDOMEN: soft, non-tender, and no masses PELVIC: external genitalia normal, normal [place]th[place]'s glands, urethra, [place]'s glands, no vulvar lesions, no cervical lesions, good vaginal support, physiologic discharge present, normal appearing perineal body and perianal region BIMANUAL: uterus normal size, shape and consistency, no adnexal masses, non-tender, and no cervical motion tenderness NEURO: alert and oriented x3,exam grossly non-focal EXTREMITIES: normal ASSESSMENT/PLAN: 1. Vaginal irritation - ICD9: 623.9, ICD10: N89.8 - Suspect dermatitis from new body wash- Reviewed vulvar hygiene including only using DOVE sensitive soap - GC/CHLAMYDIA DNA DET - BACTERIAL VAGINOSIS AMPLIFICATION - ELIANA / TRICHOMONAS AMPLIFICATION Patient needs physical order forms for follow [facility]- will fill out and fax Will notify patient of results RTO as needed and for yearly exam- needs PAP next year Yola Hidalgo APRN.CNM documented in this encounter [facility] documented as of this encounter (statuses as of 05/23/2021) [facility] History of Past illness Narrative* Problem Noted Date Resolved Date Gestational diabetes mellitus, class A1 11/30/19 17 03/20/2017 Anemia during in third trimester 11/2903/20/2017 Abnormal glucose complicating 11/17/19 17 11/29/2016 12 weeks gestation of 08/01/2016 11/29/2016 Antepartum multigravida of advanced maternal age 0506/29/2016 03/20/2017 Overview: 06/29/2016Patient is 41 years old. Advanced Maternal age discussed. Pt refused handouts on Genetic Amniocentesis and [facility]. [facility] handout on Quad Marker Screen and Early Screening In given and discussed. Level II Ultrasound and Dr. Latham's services discussed. TKRN Patient requested diagnostic testing 06/29/2016 03/20/2017 Overview: 06/29/2016Patient desires nuchal ultrasound and Materna 21 test. TKRN August 31, 2016 Materna 21 was normal XY. Doesn't want afp today. Dixie Sultana MD History of macrosomia in inf ant in prior , currently 06/29/2016 03/20/2017 Overview: 06/29/2016Patient's last child's birthweight was 9lb1oz.TKRN Spotting in 06/29/2016 07/11/2016 Overview: 06/29/2016 She states she noted BRB when she wiped once on June 04 and again June 16. She denied intercourse prior to spotting. She has noted intermittent cramping for the past 3 weeks that she rates a 2. She declined having quantitative HCG's done.Wishes to wait until her appointment 07/[address] Helton. Miscarriage precautions given. Patient to call/come in if bleeding reoccurs, pain increases or PRN problems. TKRN Abdominal pain, RUQ 04/07/2015 04/07/2015 Gastroesophageal reflux disease without esophagi tis 01/06/2015 04/07/2015 Rh negative state in antepartum period 2 03/20/2017 Overview: 06/29/2016Patient is RH negative. She is a Rhogam candidate. TKRN High-risk 12/13/2011 08/06/2012 Overview: December 13, 2011 flushot Bleeding in early 11/15/2011 05/03/2012 Advanced maternal age in 10/24/2011 08/06/2012 Overview: 10/24/2011She is 36 years old. Advanced Maternal age discussed. Pt refused handouts on Genetic Amniocentesis and [facility] handout on Quad Marker Screen and Early Screening In given and discussed. Level II Ultrasound and Dr. Latham's services discussed. documented as of this encounter (statuses as of 01/04/2022) [facility] History of Past illness Narrative* Problem Noted Date Resolved Date Gestational diabetes mellitus, class A1 11/30/19 17 03/20/2017 Anemia during in third trimester 11/2903/20/2017 Abnormal glucose complicating 11/17/19 17 11/29/2016 12 weeks gestation of 08/01/2016 11/29/2016 Antepartum multigravida of advanced maternal age 0506/29/2016 03/20/2017 Overview: 06/29/2016Patient is 41 years old. Advanced Maternal age discussed. Pt refused handouts on Genetic Amniocentesis and [facility] handout on Quad Marker Screen and Early Screening In given and discussed. Level II Ultrasound and Dr. Latham's services discussed. TKRN Patient requested diagnostic testing 06/29/2016 03/20/2017 Overview: 06/29/2016Patient desires nuchal ultrasound and Materna 21 test. TKRN August 31, 2016 Materna 21 was normal XY. Doesn't want afp today. Dixie Sultana MD History of macrosomia in inf ant in prior , currently 06/29/2016 03/20/2017 Overview: 06/29/2016Patient's last child's birthweight was 9lb1oz.TKRN Spotting in 06/29/2016 07/11/2016 Overview: 06/29/2016 She states she noted BRB when she wiped once on June 04 and again June 16. She denied intercourse prior to spotting. She has noted intermittent cramping for the past 3 weeks that she rates a 2. She declined having quantitative HCG's done.Wishes to wait until her appointment 07/[address] Helton. Miscarriage precautions given. Patient to call/come in if bleeding reoccurs, pain increases or PRN problems. TKRN Abdominal pain, RUQ 04/07/2015 04/07/2015 Gastroesophageal reflux disease without esophagi tis 01/06/2015 04/07/2015 Rh negative state in antepartum period 2 03/20/2017 Overview: 06/29/2016Patient is RH negative. She is a Rhogam candidate. TKRN High-risk 12/13/2011 08/06/2012 Overview: December 13, 2011 flushot Bleeding in early 11/15/2011 05/03/2012 Advanced maternal age in 10/24/2011 08/06/2012 Overview: 10/24/2011She is 36 years old. Advanced Maternal age discussed. Pt refused handouts on Genetic Amniocentesis and [facility] handout on Quad Marker Screen and Early Screening In given and discussed. Level II Ultrasound and Dr. Latham's services discussed. documented as of this encounter (statuses as of 01/06/2022) [facility] History of Past illness Narrative* Problem Noted Date Resolved Date Gestational diabetes mellitus, class A1 11/30/19 17 03/20/2017 Anemia during in third trimester 11/2903/20/2017 Abnormal glucose complicating 11/17/19 17 11/29/2016 12 weeks gestation of 08/01/2016 11/29/2016 Antepartum multigravida of advanced maternal age 0506/29/2016 03/20/2017 Overview: 06/29/2016Patient is 41 years old. Advanced Maternal age discussed. Pt refused handouts on Genetic Amniocentesis and [facility] handout on Quad Marker Screen and Early Screening In given and discussed. Level II Ultrasound and Dr. Latham's services discussed. TKRN Patient requested diagnostic testing 06/29/2016 03/20/2017 Overview: 06/29/2016Patient desires nuchal ultrasound and Materna 21 test. TKRN August 31, 2016 Materna 21 was normal XY. Doesn't want afp today. Dixie Sultana MD History of macrosomia in inf ant in prior , currently 06/29/2016 03/20/2017 Overview: 06/29/2016Patient's last child's birthweight was 9lb1oz.TKRN Spotting in 06/29/2016 07/11/2016 Overview: 06/29/2016 She states she noted BRB when she wiped once on June 04 and again June 16. She denied intercourse prior to spotting. She has noted intermittent cramping for the past 3 weeks that she rates a 2. She declined having quantitative HCG's done.Wishes to wait until her appointment 07/[address] Helton. Miscarriage precautions given. Patient to call/come in if bleeding reoccurs, pain increases or PRN problems. TKRN Abdominal pain, RUQ 04/07/2015 04/07/2015 Gastroesophageal reflux disease without esophagi tis 01/06/2015 04/07/2015 Rh negative state in antepartum period 2 03/20/2017 Overview: 06/29/2016Patient is RH negative. She is a Rhogam candidate. TKRN High-risk 12/13/2011 08/06/2012 Overview: December 13, 2011 flushot Bleeding in early 11/15/201103/2012 Advanced maternal age in 10/24/2011 08/06/2012 Overview: 10/24/2011She is 36 years old. Advanced Maternal age discussed. Pt refused handouts on Genetic Amniocentesis and [facility] handout on Quad Marker Screen and Early Screening In given and discussed. Level II Ultrasound and Dr. Latham's services discussed. documented as of this encounter (statuses as of 03/01/2022) [facility] History of Past illness Narrative* Problem Noted Date Resolved Date Gestational diabetes mellitus, class A1 11/30/19 17 03/20/2017 Anemia during in third trimester 11/2903/20/2017 Abnormal glucose complicating 11/17/19 17 11/29/2016 12 weeks gestation of 08/01/2016 11/29/2016 Antepartum multigravida of advanced maternal age 0506/29/2016 03/20/2017 Overview: 06/29/2016Patient is 41 years old. Advanced Maternal age discussed. Pt refused handouts on Genetic Amniocentesis and [facility] handout on Quad Marker Screen and Early Screening In given and discussed. Level II Ultrasound and Dr. Latham's services discussed. TKRN Patient requested diagnostic testing 06/29/2016 03/20/2017 Overview: 06/29/2016Patient desires nuchal ultrasound and Materna 21 test. TKRN August 31, 2016 Materna 21 was normal XY. Doesn't want afp today. Dixie Sultana MD History of macrosomia in inf ant in prior , currently 06/29/2016 03/20/2017 Overview: 06/29/2016Patient's last child's birthweight was 9lb1oz.TKRN Spotting in 06/29/2016 07/11/2016 Overview: 06/29/2016 She states she noted BRB when she wiped once on June 04 and again June 16. She denied intercourse prior to spotting. She has noted intermittent cramping for the past 3 weeks that she rates a 2. She declined having quantitative HCG's done.Wishes to wait until her appointment 07/[address] Helton. Miscarriage precautions given. Patient to call/come in if bleeding reoccurs, pain increases or PRN problems. TKRN Abdominal pain, RUQ 04/07/2015 04/07/2015 Gastroesophageal reflux disease without esophagi tis 01/06/2015 04/07/2015 Rh negative state in antepartum period 2 03/20/2017 Overview: 06/29/2016Patient is RH negative. She is a Rhogam candidate. TKRN High-risk 12/13/2011 08/06/2012 Overview: December 13, 2011 flushot Bleeding in early 11/15/2011 05/0 03/2012 Advanced maternal age in 10/24/2011 08/06/2012 Overview: 10/24/2011She is 36 years old. Advanced Maternal age discussed. Pt refused handouts on Genetic Amniocentesis and [facility] handout on Quad Marker Screen and Early Screening In given and discussed. Level II Ultrasound and Dr. Latham's services discussed. documented as of this encounter (statuses as of 03/07/2022) [facility] History of Past illness Narrative* Problem Noted Date Diagnosed Date Resolved Date Gestational diabetes mellitus, class A1 11/29/2016 03/20/2017 Anemia during in third trimester 11/29/2016 03/20/2017 Abnormal glucose complicating 11/16/2016 11/29/2016 12 weeks gestation of 08/01/2016 11/29/2016 Antepartum multigravida of a dvanced maternal age 0506/29/2016 03/20/2017 Overview: 06/29/2016Patient is 41 years old. Advanced Maternal age discussed. Pt refused handouts on Genetic Amniocentesis and [facility] handout on Quad Marker Screen and Early Screening In given and discussed. Level II Ultrasound and Dr. Latham's services discussed. TKRN Patient requested diagnostic testing 06/29/2016 03/20/2017 Overview: 06/29/2016Patient desires nuchal ultrasound and Materna 21 test. TKRN August 31, 2016 Materna 21 was normal XY. Doesn't want afp today. Dixie Sultana MD History of macrosomia in inf ant in prior , currently 06/29/2016 03/20/2017 Overview: 06/29/2016Patient's last child's birthweight was 9lb1oz.TKRN Spotting in 06/29/20162016 Overview: 06/29/2016 She states she noted BRB when she wiped once on June 04 and again June 16. She denied intercourse prior to spotting. She has noted intermittent cramping for the past 3 weeks that she rates a 2. She declined having quantitative HCG's done.Wishes to wait until her appointment 07/[address] Helton. Miscarriage precautions given. Patient to call/come in if bleeding reoccurs, pain increases or PRN problems. TKRN Abdominal pain, RUQ 04/07/2015 04/07/19 16 Gastroesophageal reflux dise ase without esophagitis 01/06/2015 04/07/2015 Rh negative state in antepartum period 12/13/2011 03/20/2017 Overview: 06/29/2016Patient is RH negative. She is a Rhogam candidate. TKRN High-risk 12/13/2011 08/07/19 13 Overview: December 13, 2011 flushot Bleeding in early 11/15/2011 06/20/2012 Advanced maternal age in 10/24/2011 08/06/2012 Overview: 10/24/2011She is 36 years old. Advanced Maternal age discussed. Pt refused handouts on Genetic Amniocentesis and [facility] handout on Quad Marker Screen and Early Screening In given and discussed. Level II Ultrasound and Dr. Latham's services discussed. documented as of this encounter (statuses as of 01/30/2023) [facility] Diagnosis Encounter for screening mammogram for breast cancer [facility] Diagnosis Vaginal irritation- Primary Unspecified noninflammatory disorder of vagina [facility] Diagnosis Mass of lower inner quadrant of left breast- Primary documented in this encounter [facility] for referral (narrative)* Diagnostic Procedure Only (Routine) - Pending Review Specialty Diagnoses / Procedures Referred By Fawad cameron Referred To Contact [facility] Diagnoses Encounter for screening mammogram for breast cancer Procedures RAAD SCREENING W ELHAM SCREENING DIGITAL BREAST TOMOSYNTHESIS BI SCREENING MAMMOGRAPHY BI 2-VIEW BREAST INC CAD Denis Rico DO [address] [place] [address] [facility] [address] [place] [id number] Referral ID Status Reason Start Date Expiration Date Visits Requested Visits Authorized [id number] Pending Review Auto-Generat ed Referral 05/18/2021 2022 1 1 [facility] for referral (narrative)* Diagnostic Procedure Only (Routine) - Authorized Specialty Diagnoses / Procedures Referred By Fawad cameron Referred To Contact [facility] Diagnoses Mass of lower inner quadrant of left breast Procedures RAAD SCREENING W [place] SCREENING DIGITAL BREAST TOMOSYNTHESIS BI SCREENING MAMMOGRAPHY BI 2-VIEW BREAST INC CAD Lexie Tong APRN.CREDIT ASSISTANT [address] [place] [address] [facility] [address] [place] [address] Referral ID Status Reason Start Date Expiration Date Visits Requested Visits Authorized [id number] Authorized Auto-Generat ed Referral 3 02/28/2024 1 1 * Diagnostic Procedure Only (Routine) - Authorized Specialty Diagnoses / Procedures Referred By Fawad t Referred To Contact [facility] Diagnoses Mass of lower inner quadrant of left breast Procedures US BREAST LTD LEFT US BREAST UNI REAL TIME WITH IMAGE LIMITED Lexie Tong APRN.CREDIT ASSISTANT [address] [place] [address] [facility] [address] [place] [address] Referral ID Status Reason Start Date Expiration Date Visits Requested Visits Authorized [id number] Authorized Auto-Generat ed Referral 3 02/28/2024 1 1 * Diagnostic Procedure Only (Routine) - Authorized Specialty Diagnoses / Procedures Referred By Fawad t Referred To Contact [facility] Diagnoses Mass of lower inner quadrant of left breast Procedures RAAD DIAGNOSTIC LEFT DIAGNOSTIC MAMMOGRAPHY COMPUTER-AIDED DETCJ UNI Lexie Tong APRN.CREDIT ASSISTANT [address] [place] [address] [facility] [address] [place] [address] Referral ID Status Reason Start Date Expiration Date Visits Requested Visits Authorized [id number] Authorized Auto-Generat ed Referral 3 02/28/2024 1 1 [facility] Summary Purpose Family History No Family History Records Found Advance Directives No Advanced Directives Records Found Additional Source Comments Source Comments (unrecognize d section and content) In the event this informatio n is protected by the Federal Confidentiality of Alcohol and Drug Abuse Patient Records regulations: The Federal rules restrict any use of the information to criminally investigate or prosecute any alcohol or drug abuse patient.[facility] the event this information is protected by the Federal Confidentiality of Alcohol and Drug Abuse Patient Records regulations: The Federal rules restrict any use of the information to criminally investigate or prosecute any alcohol or drug abuse patient.[facility] the event this information is protected by the Federal Confidentiality of Alcohol and Drug Abuse Patient Records regulations: The Federal rules restrict any use of the information to criminally investigate or prosecute any alcohol or drug abuse patient.[facility] the event this information is protected by the Federal Confidentiality of Alcohol and Drug Abuse Patient Records regulations: The Federal rules restrict any use of the information to criminally investigate or prosecute any alcohol or drug abuse patient.[facility] the event this information is protected by the Federal Confidentiality of Alcohol and Drug Abuse Patient Records regulations: The Federal rules restrict any use of the information to criminally investigate or prosecute any alcohol or drug abuse patient.[facility] the event this information is protected by the Federal Confidentiality of Alcohol and Drug Abuse Patient Records regulations: The Federal rules restrict any use of the information to criminally investigate or prosecute any alcohol or drug abuse patient.[facility] Care Teams (unrecognized sec tion and content) Progress Developer Relationship Specialty Start Date End Date Denis Rico, DO [address] [place] [address] PCP - General Family Medicine 05/02/13 Progress Developer Relationship Specialty Start Date End Date Denis Rico, DO [address] [place] [address] PCP - General Family Medicine 05/02/13 Progress Developer Relationship Specialty Start Date End Date Denis Rico DO [address] [place] [address] PCP - General Family Medicine 05/02/13 Progress Developer Relationship Specialty Start Date End Date Denis Rico, DO [address] [place] [address] PCP - General Family Medicine 05/02/13 Progress Developer Relationship Specialty Start Date End Date Denis Rico DO [address] [place] [address] PCP - General Family Medicine 05/02/13 Reason for Visit (unrecogniz ed section and content) Reason Comments Orders Reason Comments Results Reason Comments lump in left breast Noticed a few weeks ago or a month at most INFORMATION SOURCE (unrecogn ized section and content) FOR RECORDS PERTAINING TO PATIENTS WHO ARE OR HAVE BEEN ENROLLED IN A CHEMICAL DEPENDENCY/SUBSTANCEABUSE PROGRAM, SOME INFORMATION MAY BE OMITTED. This clinical summary was aggregated from multiple sources. Caution should be exercised in using it in the provision of clinical care. This summary normalizes information from multiple sources, and as a consequence, information in this document may materially change the coding, format and clinical context of patient data. In addition, data may be omitted in some cases. CLINICAL DECISIONS SHOULD BE BASED ON THE PRIMARY CLINICAL RECORDS. [employer] provides no warranty or guarantee of the accuracy or completeness of information in this document.
[2023-02-22 10:51] LABS: Thyroid Stim Hormone (TSH) 1.43 uIU/mL (0.358-3.74)
== END | disposition home or self-care (01) ==
LOC: LAB 09:50
PROVIDERS: PCP Student in an Organized Health Care Education/Training Program; Referring Provider Physician Assistant; Visit Provider Physician Assistant
DX: E89.0 Postprocedural hypothyroidism (principal)
CPT/HCPCS: 36415; 84443

== ENCOUNTER → 2023-04-30 | Outpatient (CLI) | payer BC, SELFPAY ==
--- OUTSIDE RECORDS SUMMARY | 2023-04-30 09:53 | XMS RPT_ITS | CCD ---
Author Name Unknown Address [address] [place] [address] Organization [facility] Care Team Providers Care Typesetter Apprentice Name Role Phone Denis Rico DO Primary Care Provider LEXIE TONG Referring Unavailable DENIS RICO Primary Care Unavailable LEXIE TNOG Referring Unavailable DENIS RICO Primary Care Unavailable DENIS RICO Primary Care Unavailable LEXIE TONG Attending Unavailable Allergies Allergy Classification Reported Allergen(s) Allergy Type Date of Onset Reaction(s) Facility (6 sources) NITROFURANTOIN, MACROCRYSTALS / Nitrofurantoin, Monohydrate; Translations: [NITROFURANTOIN MONOHYD/M-CRYST] Drug Allergy 01-04-2022 Rash [facility] Medications Current Medications Medication Drug Class(es) Dates Sig (Normalized) Sig (Original) levonorgestrel 0.391469 mg/hr intrauterine system (6 sources) Progestin, Progestin-containi [...] 65.32 kg Lexie Tong APRN.CNP Work Phone: [facility] 01-29-2023 14:19-0500 Diastolic blood pressure 60 mm[Hg] Lexie Tong APRN.CNP Work Phone: [facility] 01-29-2023 14:19-0500 Heart rate 68 /min Lexie Tong APRN.CNP Work Phone: [facility] 01-29-2023 14:19-0500 Respiratory rate 14 /min Lexie Tong APRN.CNP Work Phone: [facility] 01-29-2023 14:19-0500 Systolic blood pressure 104 mm[Hg] Lexie Tong SEMI TRUCK DRIVER.STAMPING BENCH DIE MAKER Work Phone: [facility] 01-04-2022 16:05-0500 Body weight 70.03 kg Yola Eliedimitris SEMI TRUCK DRIVER.CNM Work Phone: [facility] 01-04-2022 16:05-0500 Diastolic blood pressure 72 mm[Hg] Yola Plotts SEMI TRUCK DRIVER.CNM Work Phone: [facility] 01-04-2022 16:05-0500 Systolic blood pressure 112 mm[Hg] Yola Delgadillots SEMI TRUCK DRIVER.CNM Work Phone: [facility] Encounters Encounter Date Encounter Type Care Provider Facility Start: 02-20-2023 End: 02-20-2023 ambulatory LEXIE TONG Facility:[facility] Start: 01-29-2023 End: 01-29-2023 ambulatory DENIS RICO Facility:[facility] Start: 01-29-2023 End: 01-29-2023 Patient encounter procedure Lexie Tong SEMI TRUCK DRIVER.STAMPING BENCH DIE MAKER Work Phone: [facility] Procedures Date Procedure Procedure Detail Performing Clinician Start: 03-01-2022 Mammography Ruth baugh SEMI TRUCK DRIVER.CNM Work Phone: Start: 04-09-2020 Mammography Denis Louis rislorrie DO Work Phone: Start: 03-02-2020 Adult depression scr eening assessment Denis Louisrison DO Work Phone: Start: 05-01-2014 Lipid 1996 panel - S tika or Plasma Lexie Tong SEMI TRUCK DRIVER.STAMPING BENCH DIE MAKER Work Phone: Plan of Treatment Date Care Activity Detail Author Start: 01-22-2027 Urine microalbumin profile [facility] Start: 01-30-2024 Covid-19 Vaccine (#1) Covid-19 Vacci ne (#1) [facility] Immunizations Immunization Date Immunization Notes Care Provider Fa tammy 01-06-2022 influenza virus vaccine, unspecified formulation Lexie Tong SEMI TRUCK DRIVER.STAMPING BENCH DIE MAKER Work Phone: [facility] 01-16-2018 hepatitis B vaccine, adult dosage Denis Rico DO Work Phone: [facility] Work Phone: 08-17-2017 hepatitis B vaccine, adult dosage Denis Rico DO Work Phone: [facility] Work Phone: 06-20-2017 hepatitis B vaccine, adult dosage Denis Rico DO Work Phone: [facility] Work Phone: 01-22-2017 influenza, injectabl e, quadrivalent, contains preservative Denis Rico DO Work Phone: [facility] 01-22-2017 tetanus toxoid, redu ricardo diphtheria toxoid, and acellular pertussis vaccine, adsorbed Denis Rico DO Work Phone: [facility] 11-16-2016 RHO(D) immune globul in- IV or IM Denis Rico DO Work Phone: [facility] Work Phone: 05-15-2012 tetanus toxoid, redu ricardo diphtheria toxoid, and acellular pertussis vaccine, adsorbed Denis Rico DO Work Phone: [facility] 04-03-2012 RHO(D) immune globul in- IV or IM Denis Rico DO Work Phone: [facility] 12-13-2011 influenza virus vaccine, unspecified formulation Denis Rico DO Work Phone: [facility] Work Phone: 11-15-2011 RHO(D) immune globul in- IV or IM Denis Rico DO Work Phone: [facility] Payers Date Payer Category Payer Private Health Insurance [employer] P[employer] [id number] 2020-Present [phone] [id number] [place] [id number] O [id number] 2020 Private Health Insurance [id number] 2020 Private Health Insurance [id number] Social History Date Type Detail Facility Start: 04-24-2014 End: 01-04-2022 Tobacco smoking status NHIS Ex-smoker [facility] Work Phone: End: 02-19-2014 History of tobacco use Current smoker [facility] Work Phone: End: 02-19-2014 History of tobacco use Cigarette Smoker [facility] Work Phone: Start: 04-24-2014 End: 01-04-2022 Tobacco use and exposure Smokeless tobacco non-user [facility] Work Phone: Start: 10-13-2020 End: 01-29-2023 Alcohol intake Current drinker of alcohol (finding) [facility] Start: 1975 Sex Assigned At Not on file [facility] Start: 12-25-2021 End: 01-04-2022 Exposure to SARS-CoV-2 (event) Not sure [facility] Work Phone: Start: 03-02-2020 End: 01-29-2023 History of Social function [facility] Work Phone: Start: 03-02-2020 End: 01-29-2023 Tobacco use panel [facility] Work Phone: Adult Depression Screening Assessment 0 [facility] Work Phone: Clinical Notes 11-29-2016 to 02-20-2023 Lexie Tong APRN.STAMPING BENCH DIE MAKER - 01/29/2023 2:37 PM ESTTelephone Encounter - Beatris Butler RN - 03/07/2022 8:17 AM ESTTelephone Encounter - Ruth Gonzalez APRN.CNM - 03/06/2022 5:59 PM EST Note Date & Type Note Facility 02-20-2023 Note HNO ID: [id number] Author: Albina Rodrigez RDMS Service: ? Author Type: Staffing Branch Manager Type: Progress Notes Filed: 02/20/2023 2:38 PM [...] Rodrigez RDMS February 20, 2023 2:[address] [facility] 02-20-2023 Note HNO ID: [id number] Author: Junie Acevedo Mammo Tech Service: ? Author Type: Staffing Branch Manager Type: Progress Notes Filed: 02/20/2023 9:46 AM [...] Reny Smith February 20, 2023 9:[address] [facility] 01-29-2023 Note HNO ID: [id number] Author: Lexie Tong APRN.DAGO Service: ? 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 [facility] 01-29-2023 History of Presen t illness [...] Medical History 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 [...] BREAST LTD LEFT - RAAD SCREENING W [place] RTO as needed. Prescription instructions reviewed with patient as applicable. Potential red flag symptoms discussed with the patient. Reviewed appropriate action plan to take if red flag symptoms occur. Patient agreeable to treatment plan. Lexie Adam APRN.CNP [address] [place] [address] documented in this encounter [facility] 03-07-2022 Miscellaneous Notes Formattin g of this note might be different from the original. At the time results were received. Had [facility] review. [facility] was already scheduled for a biopsy with Gen/Surg at [facility]. Beatris Butler RN Please call patient and referral to general surgeon for abnormal diabnostic mammogram. Biopsy is recommended. Ruth Gonzalez APRN.CNM documented in this encounter [facility] 03-01-2022 Miscellaneous Notes Formattin g of this note might be different from the original. Spoke with [facility]. Verbal order for diagnostic bilateral imaging given to Cha. Beatris Butler RN Yes verbal order is fine.Thank you, Ruth Gonzalez APRN.CNM [facility] called. Patient is at their building and they are needing a diagnostic mammogram order. States they have a bilateral screening order, a left diagnostic, and left breast US order. The written order has both bilateral screening and left diagnostic. They have orders from both [facility] and [facility]. Patient has a left breast lump per [facility]. Can a bilateral diagnostic be ordered? This can be verbal order. We can call [phone]. Beatris Butler RN documented in this encounter [facility] 01-06-2022 Miscellaneous Notes Formattin g of this note might be different from the original. Orders faxed to [facility]. Anna Morgan RN Yes, would like diagnostic mammogram and ultrasound. Screening for next year. Yola Hidalgo APRN.CNM [facility] called. They received patient's orders for breast imaging. The orders have screening mammogram, left diagnostic, and left ultrasound. Codes are for both screening and diagnostic. [facility] can not accept orders with both codes. Do you want patient to have a diagnostic bilateral mammogram and ultrasound now? Then she won't need a screening for a year? Will need to fax new orders. Beatris Butler RN documented in this encounter [facility] 01-04-2022 History of Presen t illness [...] L3 SAB0 IAB0 Ectopic0 Multiple0 Live Births3 Marketing Communications Coordinator History LMP: 03/18/2020, IUD Age at Menarche: Age at First : Age at Menopause: Marketing Communications Coordinator History Comments: Sexual Activity: Not Currently; Male Contraception: I.U.D. 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 [...] external genitalia normal, normal [place]'s glands, urethra, [place]'s glands, no vulvar lesions, no cervical lesions, [...] follow up mammogram and breast ultrasound at [facility]- will fill out and fax Will notify patient of results RTO as needed and for yearly exam- needs PAP next year Yola Hidalgo APRN.CNM documented in this encounter [facility] documented as of this encounter (statuses as of 05/23/2021) [facility]10-11-2017 History of Past illness Narrative* Problem [...] of this encounter (statuses as of 01/04/2022) [facility] History of Past illness Narrative* Problem [...] of this encounter (statuses as of 01/06/2022) [facility] History of Past illness Narrative* Problem [...] of this encounter (statuses as of 03/01/2022) [facility] History of Past illness Narrative* Problem [...] of this encounter (statuses as of 03/07/2022) [facility] History of Past illness Narrative* Problem [...] of this encounter (statuses as of 01/30/2023) [facility] Diagnosis Encounter for screening mammogram for breast cancer [facility] Diagnosis Vaginal irritation- Primary Unspecified noninflammatory disorder of vagina [facility] Diagnosis Mass of lower inner quadrant of left breast- Primary documented in this encounter [facility] for referral (narrative)* Diagnostic Procedure Only (Routine) - Pending Review Specialty Diagnoses / Procedures Referred By Fawad cameron Referred To Contact [facility] Diagnoses Encounter for screening mammogram for breast cancer Procedures RAAD SCREENING W ELHAM SCREENING DIGITAL BREAST TOMOSYNTHESIS BI SCREENING MAMMOGRAPHY BI 2-VIEW BREAST INC CAD Denis Rico DO [address] [place] [address] [facility] [address] [place] [id number] Referral ID Status Reason Start Date Expiration Date Visits Requested Visits Authorized [id number] Pending Review Auto-Generat ed Referral 05/18/2021 2022 1 1 [facility] for referral (narrative)* Diagnostic Procedure Only (Routine) - Authorized Specialty Diagnoses / Procedures Referred By Fawad cameron Referred To Contact [facility] Diagnoses Mass of lower inner quadrant of left breast Procedures RAAD SCREENING W ELHAM SCREENING DIGITAL BREAST TOMOSYNTHESIS BI SCREENING MAMMOGRAPHY BI 2-VIEW BREAST INC CAD Lexie Tong APRN.STAMPING BENCH DIE MAKER [address] [place] [address] [facility] [address] [place] [address] Referral ID Status Reason Start Date Expiration Date Visits Requested Visits Authorized [id number] Authorized Auto-Generat ed Referral 3 02/28/2024 1 1 * Diagnostic Procedure Only (Routine) - Authorized Specialty Diagnoses / Procedures Referred By Fawad t Referred To Contact [facility] Diagnoses Mass of lower inner quadrant of left breast Procedures US BREAST LTD LEFT US BREAST UNI REAL TIME WITH IMAGE LIMITED Lexie Tong APRN.STAMPING BENCH DIE MAKER [address] [place] [address] [facility] [address] [place] [address] Referral ID Status Reason Start Date Expiration Date Visits Requested Visits Authorized [id number] Authorized Auto-Generat ed Referral 3 02/28/2024 1 1 * Diagnostic Procedure Only (Routine) - Authorized Specialty Diagnoses / Procedures Referred By Fawad t Referred To Contact [facility] Diagnoses Mass of lower inner quadrant of left breast Procedures RAAD DIAGNOSTIC LEFT DIAGNOSTIC MAMMOGRAPHY COMPUTER-AIDED DETCJ UNI Lexie Tong APRN.STAMPING BENCH DIE MAKER [address] [place] [address] [facility] [address] [place] [address] Referral ID Status Reason Start Date Expiration Date Visits Requested Visits Authorized [id number] Authorized Auto-Generat ed Referral 3 02/28/2024 1 [...] or prosecute any alcohol or drug abuse patient.[facility] the event this information is protected by the Federal Confidentiality of Alcohol and Drug Abuse Patient Records regulations: The Federal rules restrict any use of the information to criminally investigate or prosecute any alcohol or drug abuse patient.[facility] the event this information is protected by the Federal Confidentiality of Alcohol and Drug Abuse Patient Records regulations: The Federal rules restrict any use of the information to criminally investigate or prosecute any alcohol or drug abuse patient.[facility] the event this information is protected by the Federal Confidentiality of Alcohol and Drug Abuse Patient Records regulations: The Federal rules restrict any use of the information to criminally investigate or prosecute any alcohol or drug abuse patient.[facility] the event this information is protected by the Federal Confidentiality of Alcohol and Drug Abuse Patient Records regulations: The Federal rules restrict any use of the information to criminally investigate or prosecute any alcohol or drug abuse patient.[facility] the event this information is protected by the Federal Confidentiality of Alcohol and Drug Abuse Patient Records regulations: The Federal rules restrict any use of the information to criminally investigate or prosecute any alcohol or drug abuse patient.[facility] Care Teams (unrecognized sec tion and content) Typesetter Apprentice Relationship Specialty Start Date End Date Denis Rico, DO [address] [place] [address] PCP - General Family Medicine 05/02/13 Typesetter Apprentice Relationship Specialty Start Date End Date Denis Rico, DO [address] [place] [address] PCP - General Family Medicine 05/02/13 Typesetter Apprentice Relationship Specialty Start Date End Date Denis Rico DO [address] [place] [address] PCP - General Family Medicine 05/02/13 Typesetter Apprentice Relationship Specialty Start Date End Date Denis Rico, DO [address] [place] [address] PCP - General Family Medicine 05/02/13 Typesetter Apprentice Relationship Specialty Start Date End Date Denis Rico DO [address] [place] [address] PCP - General Family Medicine 05/02/13 Reason [...] BE BASED ON THE PRIMARY CLINICAL RECORDS. [employer] provides no warranty or guarantee of the accuracy or completeness of information in this document.
[2023-04-30 10:40] LABS: Thyroid Stim Hormone (TSH) 1.68 uIU/mL (0.358-3.74)
== END | disposition home or self-care (01) ==
PROVIDERS: PCP Student in an Organized Health Care Education/Training Program; Referring Provider Physician Assistant; Visit Provider Physician Assistant
DX: E89.0 Postprocedural hypothyroidism (principal)
CPT/HCPCS: 36415; 84443

== ENCOUNTER → 2023-10-16 | Outpatient (CLI) | payer BC, SELFPAY ==
[2023-10-16 13:23] LABS: Vitamin D,25 Hydroxy 34.5 ng/mL
[2023-10-16 15:00] LABS: AST(SGOT) 24 U/L (15-37); Alanine Aminotransfer ALT/SGPT 29 U/L (13-56); Albumin, Serum 3.7 g/dL (3.2-5.0); Alkaline Phosphatase 72 U/L (45-117); Anion Gap 10 (5-15); BUN 13 mg/dL (7-18); BUN/Creat Ratio 14.5 RATIO (10-20); Calcium,Total 9.5 mg/dL (8.5-10.1); Chloride 104 mmol/L (98-107); EST Glomerular Filtration Rate 72 mL/min (>60); Est Glom Filt Rate - Afr Amer 87 mL/min (>60); Globulin 3.7 g/dL (2.2-4.2); Glucose 116 mg/dL (74-106); Potassium 3.9 mmol/L (3.5-5.1); Protein, Total 7.4 g/dL (6.4-8.2); Sodium Level 137 mmol/L (136-145); Thyroid Stim Hormone (TSH) 0.906 uIU/mL (0.358-3.740)
== END | disposition home or self-care (01) ==
LOC: VSLAB 11:53
PROVIDERS: PCP Student in an Organized Health Care Education/Training Program; Visit Provider Internal Medicine Endocrinology, Diabetes & Metabolism
DX: E89.0 Postprocedural hypothyroidism (principal); E55.9 Vitamin D deficiency, unspecified
CPT/HCPCS: 36415; 80053; 82306; 84443

== ENCOUNTER → 2023-12-04 | Outpatient (CLI) | payer BC, SELFPAY ==
[2023-12-04 17:30] LABS: Thyroid Stim Hormone (TSH) 0.617 uIU/mL (0.358-3.740)
== END | disposition home or self-care (01) ==
LOC: VSLAB 13:41
PROVIDERS: PCP Student in an Organized Health Care Education/Training Program; Visit Provider Internal Medicine Endocrinology, Diabetes & Metabolism
DX: E89.0 Postprocedural hypothyroidism (principal)
CPT/HCPCS: 36415; 84443

== ENCOUNTER → 2024-09-24 | Outpatient (CLI) | payer SELFPAY ==
--- NOTE | 2024-09-24 16:43 | RAD_ITS ---
PROCEDURE: HAND MIN 3 VIEWS 09/24/2024 REASON FOR EXAM: PAIN TECHNIQUE: HAND MIN 3 VIEWS COMPARISON: Left 3rd finger radiograph on 09/24/2024. FINDINGS: Soft tissue edema and swelling overlying the distal interphalangeal joint of the 3rd finger. Normal visualized carpal bones. Normal first metacarpus. Normal second through fifth metacarpi. Normal phalanges. There is no demonstrated fracture. Normal carpal articulations. Normal carpometacarpal (CMC) articulation of the thumb. Normal metacarpophalangeal (MCP) joint of the thumb. Normal interphalangeal (IP) joint of the thumb. Normal second through fifth carpometacarpal (CMC) joints. Normal second through fifth metacarpophalangeal (MCP) joints. Normal proximal interphalangeal (PIP) and distal interphalangeal (DIP) joints of the second through fifth fingers. RAD/Hand Min 3 Views IMPRESSION: Soft tissue edema and swelling overlying the distal interphalangeal joint of th e 3rd finger. No radiographic evidence of an acute abnormality. Reading [facility]
--- NOTE | 2024-09-24 16:43 | RAD_ITS ---
PROCEDURE: FINGER(S) MIN 2 VIEWS 09/24/2024 REASON FOR EXAM: PAIN TECHNIQUE: FINGER(S) MIN 2 VIEWS COMPARISON: None. FINDINGS: No evidence of acute fracture or dislocation. Mild soft tissue swelling. RAD/Finger(s) Min 2 Views IMPRESSION: NO ACUTE FRACTURE OR DISLOCATION. Reading Location: [id number]
== END | disposition home or self-care (01) ==
LOC: MTRAD 16:41
PROVIDERS: PCP Student in an Organized Health Care Education/Training Program
DX: M79.642 Pain in left hand (principal)
CPT/HCPCS: 73130; 73140

== ENCOUNTER → 2025-01-29 | Outpatient (CLI) | payer BC, SELFPAY ==
[2025-01-29 13:06] LABS: AST(SGOT) 37 U/L (<=31); Alanine Aminotransfer ALT/SGPT 48 U/L (<=34); Albumin, Serum 4.2 g/dL (3.5-5.0); Alkaline Phosphatase 65 U/L (35-104); Anion Gap 9 (5-15); BUN 14 mg/dL (4-19); BUN/Creat Ratio 17.9 RATIO (10-20); Calcium,Total 9.1 mg/dL (7.6-11.0); Carbon Dioxide 24.2 mmol/L (21.0-32.0); Chloride 106 mmol/L (98-108); Cholesterol 168 mg/dL (<=200); Globulin 2.6 g/dL (2.2-4.2); Glucose 94 mg/dL (70-99); Low Density Lipoprotein Calc. 107 mg/dL; Potassium 4.3 mmol/L (3.3-5.1); Triglycerides 67 mg/dL; Very Low Density Lipoprotein 13 mg/dL (5-40); Vitamin D,25 Hydroxy 35.6 ng/mL (30-100); cholesterol:hdl ratio screen 3.52
== END | disposition home or self-care (01) ==
LOC: MTLAB 10:33
PROVIDERS: PCP Student in an Organized Health Care Education/Training Program; Referring Provider Internal Medicine Endocrinology, Diabetes & Metabolism; Visit Provider Internal Medicine Endocrinology, Diabetes & Metabolism
DX: E89.0 Postprocedural hypothyroidism (principal); E55.9 Vitamin D deficiency, unspecified; E78.00 Pure hypercholesterolemia, unspecified
CPT/HCPCS: 36415; 80053; 80061; 82306; 84443